=== PATIENT | female | born 1930 | race Caucasian/White ===

== ENCOUNTER 2016-08-16 08:32 | Inpatient (IN) | payer MEDICARE, OTHER ==
--- NOTE | 2016-08-16 09:26 | EDM.PDOC ---
ED HPI GENERAL MEDICAL PROBLEM - General Chief Complaint: Upper Extremity Injury/Pain Stated Complaint: LT SHLDR/FELL Time Seen by Provider: 08/16/16 09:10 Source of Information: Reports: Patient History Limitations: Reports: No Limitations - History of Present Illness INITIAL COMMENTS - FREE TEXT/NARRATIVE: Marleny is an 85 yo female who presents to the ER via family with concerns of left elbow pain. She states she was doing laundry this morning and ended up losing her balance. States she fell onto her left shoulder. Admits she was unable to get herself up. Home health stopped this morning and found her to be lying on the floor. She denies any loss of consciousness. States she has some mild right thumb discomfort as well. Otherwise, no other contributory symptoms. Location: Reports: Upper Extremity, Left Quality: Reports: Sharp Severity: Moderate Improves with: Reports: Immobilization Worsens with: Reports: Movement Associated Symptoms: Reports: No Other Symptoms Left Anterior Shoulder Pain Score (Numeric/FACES): 7 - Related Data Allergies Allergy/AdvReac Type Severity Reaction Status Date / Time No Known Allergies Allergy Verified 08/16/16 08:36 Home Meds: Home Meds Acetaminophen [Tylenol Extra Strength] 500 mg PO BID 06/18/14 [History] Atenolol [Tenormin] 25 mg PO DAILY 06/18/14 [History] Cholecalciferol (Vitamin D3) [Vitamin D3] 1,000 unit PO DAILY 06/18/14 [History] Fosinopril Sodium 40 mg PO DAILY 06/18/14 [History] Insuln Asp Prot/Insulin Aspart [NovoLOG Mix 70-30] 22 units SUBCUT WITHBREAKFAST 06/18/14 [History] Insuln Asp Prot/Insulin Aspart [NovoLOG Mix 70-30] 25 units SUBCUT BEDTIME 06/18 [History] Pregabalin [Lyrica] 75 mg PO BEDTIME 06/18/14 [History] Pregabalin [Lyrica] 100 mg PO DAILY 06/18/14 [History] Rosuvastatin Calcium [Crestor] 10 mg PO DAILY 06/18/14 [History] amLODIPine Besylate [Amlodipine Besylate] 10 mg PO DAILY 06/18/14 [History] Donepezil [Aricept] 10 mg PO BEDTIME 02/22/16 [History] Ascorbate Calcium [Vitamin C] 500 mg PO DAILY 08/16/16 [History] Aspirin 325 mg PO DAILY 08/16/16 [History] Ferrous Gluconate 324 mg PO DAILY 08/16/16 [History] Flaxseed Oil [Flaxseed] 1,200 mg PO DAILY 08/16/16 [History] Hydrochlorothiazide [Hydrochlorothiazide] 12.5 mg PO DAILY 08/16/16 [History] Vitamin B Complex 500 mcg PO DAILY 08/16/16 [History] Vitamin E 400 unit PO DAILY 08/16/16 [History] Past Medical History HEENT History: Reports: Impaired Vision Cardiovascular History: Reports: High Cholesterol, Hypertension Neurological History: Reports: Neuropathy, Diabetic Other Neuro History: forgetful Endocrine/Metabolic History: Reports: Diabetes, Type II Other Dermatologic History: Has x 3 dry blister areas on buttocks, from lying on floor at home when she fell. - Infectious Disease History Infectious Disease History: Reports: MRSA - Past Surgical History HEENT Surgical History: Reports: Cataract Surgery Musculoskeletal Surgical History: Reports: Carpal Tunnel, Other (See Below) Social & Family History - Family History Family Medical History: Noncontributory - Tobacco Use Smoking Status *Q: Never Smoker - Caffeine Use Caffeine Use: Reports: None - Recreational Drug Use Recreational Drug Use: No Review of Systems - Review of Systems Review Of Systems: ROS reveals no pertinent complaints other than HPI. Eyes: Reports: No Symptoms Ears: Reports: No Symptoms Nose: Reports: No Symptoms Mouth/Throat: Reports: No Symptoms Respiratory: Reports: No Symptoms Cardiovascular: Reports: No Symptoms Musculoskeletal: Reports: Shoulder Pain (left shoulder), Arm Pain (left upper arm) Skin: Reports: No Symptoms Neurological: Reports: No Symptoms Psychiatric: Reports: No Symptoms ED EXAM, GENERAL - Physical Exam Exam: See Below Exam Limited By: No Limitations General Appearance: Alert, WD/WN, Mild Distress Ears: Normal External Exam, Normal Canal, Hearing Grossly Normal, Normal TMs Nose: Normal Inspection, Normal Mucosa, No Blood Throat/Mouth: Normal Inspection, Normal Lips, Normal Gums, Normal Oropharynx, Normal Voice, No Airway Compromise Head: Atraumatic, Normocephalic Neck: Normal Inspection, Supple, Non-Tender, Full Range of Motion. No: Tender Lateral, Tender Midline Respiratory/Chest: No Respiratory Distress, Lungs Clear, No Accessory Muscle Use Cardiovascular: Regular Rate, Rhythm, No Murmur GI/Abdominal: Normal Bowel Sounds, Soft, Non-Tender, No Organomegaly, No Distention Back Exam: Normal Inspection, Full Range of Motion Extremities: Normal Capillary Refill, Arm Pain (left comminuted humeral neck/ head fracture), Limited Range of Motion Neurological: Alert, Oriented, Normal Cognition, Normal Gait, No Motor/Sensory Deficits. No: Confused Psychiatric: Normal Affect, Normal Mood Skin Exam: Warm, Dry, Intact, Normal Color, No Rash Course - Vital Signs Last Recorded V/S: Last Vital Signs Temp 97.2 F 08/16/16 08:38 Pulse 65 08/16/16 08:38 Resp 16 08/16/16 08:38 BP 114/53 L 08/16/16 08:38 Pulse Ox 97 08/16/16 08:38 - Orders/Labs/Meds Orders: Active Orders 24 hr Category Date Time Status Shoulder Comp Lt [CR] Stat Exams 08/16/16 08:45 Taken Departure - Departure Time of Disposition: 09:40 Disposition: Admitted As Inpatient 67 Condition: Undetermined Clinical Impression: Fracture, humerus - Discharge Information - Problem List & Annotations (1) Fracture, humerus SNOMED Code(s): 18291980 Code(s): S42.309A - UNSP FRACTURE OF SHAFT OF HUMERUS, UNSP ARM, INIT Status: Acute Current Visit: Yes Qualifiers: Encounter type: initial encounter Humerus Location: proximal Fracture type: closed Fracture alignment: displaced Laterality: left - Problem List Review Problem List Initiated/Reviewed/Updated: Yes - My Orders Last 24 Hours: My Active Orders 08/16/16 08:45 Shoulder Comp Lt [CR] Stat - Assessment/Plan Admission H&P: Please use this note as an admission H&P Last 24 Hours: My Active Orders 08/16/16 08:45 Shoulder Comp Lt [CR] Stat Plan: Consulted with Dr. Stoddadr, orthopaedic surgeon, at [facility] in [place]. He reviewed images and recommended arm sling with follow up appointment at [facility] in [place] in 10-14 days. Discussed conservative treatment v.s. surgical repair and Dr. Stoddard recommended conservative treatment initially to see how she progresses. [place] reverse shoulder replacement may be the end treatment if she does not progress well. Discussed results with family. Will admit to Dr. Mo's services under acute care for pain management. Discussed short term shelter placement as well. Will have consult for shelter placement as well. Dr. Mo agreed with admission. Marleny was transferred to floor in satisfactory condition. Arm sling applied.
[2016-08-16] MEDS ORDERED: Ketorolac 30 MG/ML SDV IVPUSH PRN (10:38)
[2016-08-16] MEDS ORDERED: Acetaminophen 325 MG Tab PO PRN (10:38)
[2016-08-16] MEDS ORDERED: Sodium Chloride 0.9% 10 ML Syringe FLUSH PRN (10:38)
[2016-08-16] MEDS: Enoxaparin 30 MG/0.3 ML Syringe SUBCUT SCH (17:27)
[2016-08-16] MEDS: Insuln Aspart Prot/Insulin Aspart 100 Units/ML 3 ML FlexPen SUBCUT SCH (17:28)
[2016-08-16] MEDS: Pregabalin 25 MG Cap PO SCH (19:43)
[2016-08-16] MEDS: Pregabalin 50 MG Cap PO SCH (19:43)
[2016-08-16] MEDS: Donepezil 5 MG Tab PO SCH (19:43)
[2016-08-16] MEDS ORDERED: PREGABALIN 75 MG PO SCH (20:00)
[2016-08-16] MEDS: Acetaminophen/oxyCODONE 325-5 MG Tab PO PRN (21:15)
[2016-08-17] MEDS: Aspirin 325 MG Tab.EC PO SCH (07:58)
[2016-08-17] MEDS: Hydrochlorothiazide 12.5 MG Cap PO SCH (07:58)
[2016-08-17] MEDS: Ascorbic Acid 500 MG Tab PO SCH (07:58)
[2016-08-17] MEDS: amLODIPine 10 MG Tab PO SCH (07:59)
[2016-08-17] MEDS: Ferrous Sulfate 324 MG Tab.EC PO SCH (07:59)
[2016-08-17] MEDS: Acetaminophen/oxyCODONE 325-5 MG Tab PO PRN ×3 (07:59→17:04)
[2016-08-17] MEDS: Lisinopril 20 MG Tab PO SCH (07:59)
[2016-08-17] MEDS: Atenolol 25 MG Tab PO SCH (07:59)
[2016-08-17] MEDS: Pregabalin 100 MG Cap PO SCH (07:59)
[2016-08-17] MEDS: Docusate Sodium 100 MG Cap PO PRN ×2 (07:59→20:37)
[2016-08-17] MEDS: Insuln Aspart Prot/Insulin Aspart 100 Units/ML 3 ML FlexPen SUBCUT SCH ×2 (08:03→17:07)
--- NOTE | 2016-08-17 08:21 | PN ---
DATE: 08/17/2016 S: Marleny was admitted yesterday by Juan after having a fall. She sustained a left humeral head fracture. She was admitted for weakness and pain control. For the most part, her vitals have been stable since here. Blood pressures are actually little high this morning. She is saturating well. She does admit to some pain. They have taken her out of an immobilizer and put her in a sling, but suspect she is getting some shifting with that. O: GENERAL: She is in her usual state. Pleasant and confused. HEENT: Grossly benign. NECK: Supple. Veins are flat. LUNG: Sounds appear clear. CARDIAC: Tones are regular. No peripheral edema is seen. MUSCULOSKELETAL: Left arm with swelling, held in a sling. ASSESSMENT: 1. FALL WITH HUMERAL FRACTURE. 2. CONFUSION SECONDARY TO DEMENTIA. 3. WEAKNESS. P: We will put her on an immobilizer. She is apparently eating well. We will get her up and moving today. No other changes at this time. KIANNA/ZAIN /[id number]
[2016-08-17] MEDS ORDERED: Tuberculin, PPD 5 Units/0.1 ML 1 ML MDV IDERM ONE (15:02)
[2016-08-17] MEDS: Enoxaparin 30 MG/0.3 ML Syringe SUBCUT SCH (17:05)
[2016-08-17] MEDS ORDERED: Tuberculin, PPD 5 Units/0.1 ML 1 ML MDV ONE (17:24)
[2016-08-17] MEDS: Pregabalin 25 MG Cap PO SCH (20:34)
[2016-08-17] MEDS: Donepezil 5 MG Tab PO SCH (20:34)
[2016-08-17] MEDS: Simvastatin 40 MG Tab PO SCH (20:37)
[2016-08-17] MEDS: Pregabalin 50 MG Cap PO SCH (20:37)
[2016-08-18] MEDS: Acetaminophen/oxyCODONE 325-5 MG Tab PO PRN ×2 (00:44→20:28)
[2016-08-18] MEDS: Aspirin 325 MG Tab.EC PO SCH (07:46)
[2016-08-18] MEDS: Ferrous Sulfate 324 MG Tab.EC PO SCH (07:47)
[2016-08-18] MEDS: Hydrochlorothiazide 12.5 MG Cap PO SCH (07:47)
[2016-08-18] MEDS: Ascorbic Acid 500 MG Tab PO SCH (07:48)
[2016-08-18] MEDS: Atenolol 25 MG Tab PO SCH (07:48)
[2016-08-18] MEDS: Pregabalin 100 MG Cap PO SCH (07:48)
[2016-08-18] MEDS: Lisinopril 20 MG Tab PO SCH (07:51)
[2016-08-18] MEDS: amLODIPine 10 MG Tab PO SCH (07:51)
[2016-08-18] MEDS: Insuln Aspart Prot/Insulin Aspart 100 Units/ML 3 ML FlexPen SUBCUT SCH ×2 (07:53→17:17)
--- NOTE | 2016-08-18 12:48 | PN ---
DATE: 08/18/2016 S: Marleny is not doing well. She has not had any significant change in her pain. Blood pressure is well controlled. She did get put in an immobilizer yesterday. I think they gave her a little bit more relief. She has pain whenever she turns. [facility]. O: GENERAL: She is pleasant and cooperative. NECK: Supple. Veins are flat. LUNGS: Clear. HEART: Cardiac tones are regular. ABDOMEN: No abdominal pain to palpation. No peripheral edema. ASSESSMENT: 1. FALL WITH HUMERAL FRACTURE. 2. DEMENTIA. 3. FAILURE TO THRIVE. P: We are going to ultimately transfer to [facility]. Waiting for bed to open. For now continue with IV pain meds, Toradol, etc. KIANNA/ZAIN /[id number]
[2016-08-18] MEDS: Enoxaparin 30 MG/0.3 ML Syringe SUBCUT SCH (17:16)
[2016-08-18] MEDS: Donepezil 5 MG Tab PO SCH (20:27)
[2016-08-18] MEDS: Pregabalin 50 MG Cap PO SCH (20:28)
[2016-08-18] MEDS: Pregabalin 25 MG Cap PO SCH (20:28)
[2016-08-18] MEDS: Simvastatin 40 MG Tab PO SCH (20:28)
[2016-08-19] MEDS: Insuln Aspart Prot/Insulin Aspart 100 Units/ML 3 ML FlexPen SUBCUT SCH ×2 (08:07→17:29)
[2016-08-19] MEDS: Pregabalin 100 MG Cap PO SCH (08:17)
[2016-08-19] MEDS: Lisinopril 20 MG Tab PO SCH (08:17)
[2016-08-19] MEDS: Hydrochlorothiazide 12.5 MG Cap PO SCH (08:17)
[2016-08-19] MEDS: Aspirin 325 MG Tab.EC PO SCH (08:17)
[2016-08-19] MEDS: amLODIPine 10 MG Tab PO SCH (08:17)
[2016-08-19] MEDS: Ascorbic Acid 500 MG Tab PO SCH (08:17)
[2016-08-19] MEDS: Atenolol 25 MG Tab PO SCH (08:17)
[2016-08-19] MEDS: Ferrous Sulfate 324 MG Tab.EC PO SCH (08:17)
--- NOTE | 2016-08-19 08:44 | PCM.PN ---
- General Info Date of Service: 08/19/16 Admission Dx/Problem (Free Text): Received patient sitting up in bed eating breakfast. She is very pleasant, but confused at this time. Left arm in should immobilizer. Denies any pain at this time, and nursing states her pain has been ell controlled through the night. BBS are clear, resp. even and unlabored at this time. Skin warm and dry. heart tones normal. Abdomen is somft and bowel sounds are normal. patient responds to commands appropriately, and is no acute distress at this time. Will montor patient closely. Functional Status: Reports: pain controlled - Review of Systems General: Reports: No Symptoms HEENT: Reports: no symptoms Pulmonary: Reports: no symptoms Cardiovascular: Reports: No Symptoms Gastrointestinal: Reports: No symptoms Genitourinary: Reports: no symptoms Musculoskeletal: Reports: no symptoms Skin: Reports: no symptoms Psychiatric: Reports: no symptoms - Patient Data Vitals - most recent: Last Vital Signs Temp 97.5 F 08/19/16 07:34 Pulse 75 08/19/16 07:34 Resp 20 08/19/16 07:34 BP 157/61 H 08/19/16 07:34 Pulse Ox 92 L 08/19/16 07:34 Weight - most recent: 157 lb 12.8 oz Lab Results last 24 hrs: Laboratory Results - last 24 hr 08/18/16 08/18/16 08/18/16 Range/Units 11:49 17:19 21:07 POC Glucose 343 H 195 H 285 H (75-105) mg/dl 08/19/16 Range/Units 07:31 POC Glucose 238 H (75-105) mg/dl Arnel Results last 24 hrs: Microbiology 08/17/16 09:04 MRSA Clearance Screen - Final Nasal, Unspecified NO MRSA ISOLATED Med Orders - Current: Current Medications Acetaminophen (Tylenol) 650 mg PO Q4H PRN PRN Reason: Pain (Mild 1-3)/fever Last Admin: 08/18/16 09:25 Dose: 650 mg Amlodipine Besylate (Norvasc) 10 mg PO DAILY [facility] Last Admin: 08/19/16 08:17 Dose: 10 mg Ascorbic Acid (Vitamin C) 500 mg PO DAILY [facility] Last Admin: 08/19/16 08:17 Dose: 500 mg Aspirin (Ecotrin) 325 mg PO DAILY [facility] Last Admin: 08/19/16 08:17 Dose: 325 mg Atenolol (Tenormin) 25 mg PO DAILY [facility] Last Admin: 08/19/16 08:17 Dose: 25 mg Docusate Sodium (Colace) 100 mg PO BID PRN PRN Reason: Constipation Last Admin: 08/17/16 20:37 Dose: 100 mg Donepezil HCl (Aricept) 10 mg PO BEDTIME [facility] Last Admin: 08/18/16 20:27 Dose: 10 mg Enoxaparin Sodium (Lovenox) 30 mg SUBCUT Q24H [facility] Last Admin: 08/18/16 17:16 Dose: 30 mg Ferrous Sulfate (Ferrous Sulfate) 324 mg PO DAILY [facility] Last Admin: 08/19/16 08:17 Dose: 324 mg Hydrochlorothiazide (Hydrochlorothiazide) 12.5 mg PO DAILY [facility] Last Admin: 08/19/16 08:17 Dose: 12.5 mg Insulin Aspart (Novolog Mix 70-30) 22 unit SUBCUT WITHBREAKFAST [facility] Last Admin: 08/19/16 08:07 Dose: 22 units Insulin Aspart (Novolog Mix 70-30) 25 unit SUBCUT 1730 [facility] Last Admin: 08/18/16 17:17 Dose: 25 unit Ketorolac Tromethamine (Toradol) 15 mg IVPUSH Q6H PRN PRN Reason: Pain (moderate 4-6) Lisinopril (Prinivil) 20 mg PO DAILY [facility] Last Admin: 08/19/16 08:17 Dose: 20 mg Oxycodone/Acetaminophen (Percocet 325-5 Mg) 1 tab PO Q4H PRN PRN Reason: Pain (moderate 4-6) Last Admin: 08/18/16 20:28 Dose: 1 tab Pregabalin (Lyrica) 100 mg PO DAILY [facility] Last Admin: 08/19/16 08:17 Dose: 100 mg Pregabalin (Lyrica) 25 mg PO BEDTIME [facility] Last Admin: 08/18/16 20:28 Dose: 25 mg Pregabalin (Lyrica) 50 mg PO BEDTIME [facility] Last Admin: 08/18/16 20:28 Dose: 50 mg Simvastatin (Zocor) 40 mg PO BEDTIME [facility] Last Admin: 08/18/16 20:28 Dose: 40 mg Sodium Chloride (Saline Flush) 10 ml FLUSH ASDIRECTED PRN PRN Reason: Keep Vein Open Discontinued Medications Tuberculin PPD (Aplisol) 5 unit IDERM ONETIME ONE Stop: 08/17/16 15:03 Last Admin: 08/17/16 17:14 Dose: 5 unit Tuberculin PPD (Aplisol) Confirm Administered Dose 5 unit .ROUTE .STK-MED ONE Stop: 08/17/16 17:25 Last Admin: 08/17/16 17:22 Dose: Not Given - Problem List Review Problem List Initiated/Reviewed/Updated: Yes
[2016-08-19] MEDS: Acetaminophen/oxyCODONE 325-5 MG Tab PO PRN (14:41)
[2016-08-19] MEDS: Enoxaparin 30 MG/0.3 ML Syringe SUBCUT SCH (17:05)
[2016-08-19] MEDS: Donepezil 5 MG Tab PO SCH (19:48)
[2016-08-19] MEDS: Simvastatin 40 MG Tab PO SCH (19:48)
[2016-08-19] MEDS: Pregabalin 25 MG Cap PO SCH (19:48)
[2016-08-19] MEDS: Pregabalin 50 MG Cap PO SCH (19:48)
[2016-08-20] MEDS: Insuln Aspart Prot/Insulin Aspart 100 Units/ML 3 ML FlexPen SUBCUT SCH ×2 (08:16→17:40)
[2016-08-20] MEDS: Aspirin 325 MG Tab.EC PO SCH (08:21)
[2016-08-20] MEDS: Pregabalin 100 MG Cap PO SCH (08:21)
[2016-08-20] MEDS: amLODIPine 10 MG Tab PO SCH (08:22)
[2016-08-20] MEDS: Ferrous Sulfate 324 MG Tab.EC PO SCH (08:22)
[2016-08-20] MEDS: Hydrochlorothiazide 12.5 MG Cap PO SCH (08:22)
[2016-08-20] MEDS: Atenolol 25 MG Tab PO SCH (08:22)
[2016-08-20] MEDS: Ascorbic Acid 500 MG Tab PO SCH (08:22)
[2016-08-20] MEDS: Lisinopril 20 MG Tab PO SCH (08:22)
--- NOTE | 2016-08-20 09:16 | PCM.PN ---
- General Info Date of Service: 08/20/16 Admission Dx/Problem (Free Text): Sitting up n bed just finished breakfast. Denies pain or discomfort at this time. No distress noted. BBS clear. Appears to be in good spirits. [facility] Will continue to monitor patient closely. Functional Status: Reports: pain controlled - Review of Systems General: Reports: No Symptoms HEENT: Reports: no symptoms Pulmonary: Reports: no symptoms Cardiovascular: Reports: No Symptoms Gastrointestinal: Reports: No symptoms Genitourinary: Reports: no symptoms Musculoskeletal: Reports: no symptoms - Patient Data Vitals - most recent: Last Vital Signs Temp 98.5 F 08/20/16 08:00 Pulse 76 08/20/16 08:00 Resp 18 08/20/16 08:00 BP 147/59 H 08/20/16 08:00 Pulse Ox 92 L 08/20/16 08:00 Weight - most recent: 157 lb 12.8 oz Lab Results last 24 hrs: Laboratory Results - last 24 hr 08/19/16 08/19/16 08/19/16 Range/Units 11:33 17:17 20:34 POC Glucose 301 H 244 H 242 H (75-105) mg/dl 08/20/16 Range/Units 07:40 POC Glucose 201 H (75-105) mg/dl Med Orders - Current: Current Medications Acetaminophen (Tylenol) 650 mg PO Q4H PRN PRN Reason: Pain (Mild 1-3)/fever Last Admin: 08/18/16 09:25 Dose: 650 mg Amlodipine Besylate (Norvasc) 10 mg PO DAILY [facility] Last Admin: 08/20/16 08:22 Dose: 10 mg Ascorbic Acid (Vitamin C) 500 mg PO DAILY [facility] Last Admin: 08/20/16 08:22 Dose: 500 mg Aspirin (Ecotrin) 325 mg PO DAILY [facility] Last Admin: 08/20/16 08:21 Dose: 325 mg Atenolol (Tenormin) 25 mg PO DAILY [facility] Last Admin: 08/20/16 08:22 Dose: 25 mg Docusate Sodium (Colace) 100 mg PO BID PRN PRN Reason: Constipation Last Admin: 08/17/16 20:37 Dose: 100 mg Donepezil HCl (Aricept) 10 mg PO BEDTIME [facility] Last Admin: 08/19/16 19:48 Dose: 10 mg Enoxaparin Sodium (Lovenox) 30 mg SUBCUT Q24H [facility] Last Admin: 08/19/16 17:05 Dose: 30 mg Ferrous Sulfate (Ferrous Sulfate) 324 mg PO DAILY [facility] Last Admin: 08/20/16 08:22 Dose: 324 mg Hydrochlorothiazide (Hydrochlorothiazide) 12.5 mg PO DAILY [facility] Last Admin: 08/20/16 08:22 Dose: 12.5 mg Insulin Aspart (Novolog Mix 70-30) 22 unit SUBCUT WITHBREAKFAST [facility] Last Admin: 08/20/16 08:16 Dose: 22 units Insulin Aspart (Novolog Mix 70-30) 25 unit SUBCUT 1730 [facility] Last Admin: 08/19/16 17:29 Dose: 25 unit Ketorolac Tromethamine (Toradol) 15 mg IVPUSH Q6H PRN PRN Reason: Pain (moderate 4-6) Last Admin: 08/20/16 05:25 Dose: 15 mg Lisinopril (Prinivil) 20 mg PO DAILY [facility] Last Admin: 08/20/16 08:22 Dose: 20 mg Oxycodone/Acetaminophen (Percocet 325-5 Mg) 1 tab PO Q4H PRN PRN Reason: Pain (moderate 4-6) Last Admin: 08/19/16 14:41 Dose: 1 tab Pregabalin (Lyrica) 100 mg PO DAILY [facility] Last Admin: 08/20/16 08:21 Dose: 100 mg Pregabalin (Lyrica) 25 mg PO BEDTIME [facility] Last Admin: 08/19/16 19:48 Dose: 25 mg Pregabalin (Lyrica) 50 mg PO BEDTIME [facility] Last Admin: 08/19/16 19:48 Dose: 50 mg Simvastatin (Zocor) 40 mg PO BEDTIME [facility] Last Admin: 08/19/16 19:48 Dose: 40 mg Sodium Chloride (Saline Flush) 10 ml FLUSH ASDIRECTED PRN PRN Reason: Keep Vein Open Discontinued Medications Tuberculin PPD (Aplisol) 5 unit IDERM ONETIME ONE Stop: 08/17/16 15:03 Last Admin: 08/17/16 17:14 Dose: 5 unit Tuberculin PPD (Aplisol) Confirm Administered Dose 5 unit .ROUTE .STK-MED ONE Stop: 08/17/16 17:25 Last Admin: 08/17/16 17:22 Dose: Not Given - Problem List Review Problem List Initiated/Reviewed/Updated: Yes
[2016-08-20] MEDS: Enoxaparin 30 MG/0.3 ML Syringe SUBCUT SCH (17:40)
[2016-08-20] MEDS: Pregabalin 50 MG Cap PO SCH (21:07)
[2016-08-20] MEDS: Donepezil 5 MG Tab PO SCH (21:07)
[2016-08-20] MEDS: Simvastatin 40 MG Tab PO SCH (21:07)
[2016-08-20] MEDS: Pregabalin 25 MG Cap PO SCH (21:07)
[2016-08-20] MEDS: Acetaminophen/oxyCODONE 325-5 MG Tab PO PRN (21:08)
[2016-08-21] MEDS: Ferrous Sulfate 324 MG Tab.EC PO SCH (08:28)
[2016-08-21] MEDS: Hydrochlorothiazide 12.5 MG Cap PO SCH (08:28)
[2016-08-21] MEDS: Atenolol 25 MG Tab PO SCH (08:28)
[2016-08-21] MEDS: Lisinopril 20 MG Tab PO SCH (08:28)
[2016-08-21] MEDS: Pregabalin 100 MG Cap PO SCH (08:28)
[2016-08-21] MEDS: Aspirin 325 MG Tab.EC PO SCH (08:28)
[2016-08-21] MEDS: amLODIPine 10 MG Tab PO SCH (08:28)
[2016-08-21] MEDS: Ascorbic Acid 500 MG Tab PO SCH (08:28)
[2016-08-21 08:29] VITALS: BP 149/60
[2016-08-21] MEDS: Insuln Aspart Prot/Insulin Aspart 100 Units/ML 3 ML FlexPen SUBCUT SCH (08:33)
--- NOTE | 2016-08-21 20:56 | PCM.DCSUM1 ---
Discharge Summary - Hospital Course Free Text/Narrative:: Patient presented to ED after a fall where she sustained a humeral fracture. Patient was doing laundry and fell and was unable to get up from the floor. Home health found her lying on the floor. Patient does have history of dementia , instability and frequent falls so was felt that should be admitted for pain control and safety. - Discharge Data Discharge Date: 08/21/16 Discharge Disposition: DC/Tfer to [facility] Condition: Fair - Patient Summary/Data Complications: none Hospital Course: Patient admitted by Juan [place]. Consult was done at that time with orthopaedics who felt that surgical correction not needed and patient was placed in sling with suggested follow up in 2 weeks. Did have more issues with uncontrolled pain with the sling so was placed in an immobilizer. Had pain in first 24 hours but was controlled with pain medications. Over the last 24 hours, pain med use has decreased significantly. Tolerating meals, uses quad cane for ambulation with stand by assist. Will transfer to [facility] for rehab with PT and OT, pain meds. - Patient Instructions Diet: Diabetic Diet Activity: As Tolerated - Discharge Plan Prescriptions/Med Rec: oxyCODONE HCl/Acetaminophen [Percocet 5-325 mg Tablet] 1 each PO Q6H #30 tablet Home Medications: Home Meds Acetaminophen [Tylenol Extra Strength] 500 mg PO BID 06/18/14 [History] Atenolol [Tenormin] 25 mg PO DAILY 06/18/14 [History] Cholecalciferol (Vitamin D3) [Vitamin D3] 1,000 unit PO DAILY 06/18/14 [History] Fosinopril Sodium 40 mg PO DAILY 06/18/14 [History] Insuln Asp Prot/Insulin Aspart [NovoLOG Mix 70-30] 22 units SUBCUT WITHBREAKFAST 06/18/14 [History] Insuln Asp Prot/Insulin Aspart [NovoLOG Mix 70-30] 25 units SUBCUT BEDTIME 06/18 [History] Pregabalin [Lyrica] 75 mg PO BEDTIME 06/18/14 [History] Pregabalin [Lyrica] 100 mg PO DAILY 06/18/14 [History] Rosuvastatin Calcium [Crestor] 10 mg PO DAILY 06/18/14 [History] amLODIPine Besylate [Amlodipine Besylate] 10 mg PO DAILY 06/18/14 [History] Donepezil [Aricept] 10 mg PO BEDTIME 02/22/16 [History] Ascorbate Calcium [Vitamin C] 500 mg PO DAILY 08/16/16 [History] Aspirin 325 mg PO DAILY 08/16/16 [History] Ferrous Gluconate 324 mg PO DAILY 08/16/16 [History] Flaxseed Oil [Flaxseed] 1,200 mg PO DAILY 08/16/16 [History] Hydrochlorothiazide 12.5 mg PO DAILY 08/16/16 [History] Vitamin B Complex 500 mcg PO DAILY 08/16/16 [History] Vitamin E 400 unit PO DAILY 08/16/16 [History] oxyCODONE HCl/Acetaminophen [Percocet 5-325 mg Tablet] 1 each PO Q6H #30 tablet 08/21/16 [Rx] Forms: ED Department Discharge Referrals: Daren Mo MD [Primary Care Provider] - - Discharge Summary/Plan Comment DC Time >30 min.: Yes Discharge Summary/Plan Comment: Discharge to [facility]. Continue with PT and OT. Exam, orders and documentation time 40 minutes. - General Info Date of Service: 08/21/16 Admission Dx/Problem (Free Text: Left Humerus Fracture Functional Status: Reports: pain controlled, tolerating diet, ambulating - Review of Systems General: Reports: No Symptoms HEENT: Reports: no symptoms Pulmonary: Reports: no symptoms Cardiovascular: Reports: No Symptoms Gastrointestinal: Reports: No symptoms Genitourinary: Reports: no symptoms Musculoskeletal: Reports: shoulder pain, arm pain Skin: Reports: no symptoms Neurological: Reports: Confusion Psychiatric: Reports: confusion - Patient Data Vitals - Most Recent: Last Vital Signs Temp 98.3 F 08/21/16 08:00 Pulse 76 08/21/16 08:28 Resp 18 08/21/16 08:00 BP 149/60 H 08/21/16 08:28 Pulse Ox 94 L 08/21/16 08:00 Weight - Most Recent: 157 lb 12.8 oz Lab Results - Last 24 hrs: Laboratory Results - last 24 hr 08/21/16 Range/Units 07:35 POC Glucose 168 H (75-105) mg/dl Med Orders - Current: Current Medications Discontinued Medications Acetaminophen (Tylenol) 650 mg PO Q4H PRN PRN Reason: Pain (Mild 1-3)/fever Last Admin: 08/18/16 09:25 Dose: 650 mg Amlodipine Besylate (Norvasc) 10 mg PO DAILY [facility] Last Admin: 08/21/16 08:28 Dose: 10 mg Ascorbic Acid (Vitamin C) 500 mg PO DAILY [facility] Last Admin: 08/21/16 08:28 Dose: 500 mg Aspirin (Ecotrin) 325 mg PO DAILY [facility] Last Admin: 08/21/16 08:28 Dose: 325 mg Atenolol (Tenormin) 25 mg PO DAILY [facility] Last Admin: 08/21/16 08:28 Dose: 25 mg Docusate Sodium (Colace) 100 mg PO BID PRN PRN Reason: Constipation Last Admin: 08/17/16 20:37 Dose: 100 mg Donepezil HCl (Aricept) 10 mg PO BEDTIME [facility] Last Admin: 08/20/16 21:07 Dose: 10 mg Enoxaparin Sodium (Lovenox) 30 mg SUBCUT Q24H [facility] Last Admin: 08/20/16 17:40 Dose: 30 mg Ferrous Sulfate (Ferrous Sulfate) 324 mg PO DAILY [facility] Last Admin: 08/21/16 08:28 Dose: 324 mg Hydrochlorothiazide (Hydrochlorothiazide) 12.5 mg PO DAILY [facility] Last Admin: 08/21/16 08:28 Dose: 12.5 mg Insulin Aspart (Novolog Mix 70-30) 22 unit SUBCUT WITHBREAKFAST [facility] Last Admin: 08/21/16 08:33 Dose: 22 units Insulin Aspart (Novolog Mix 70-30) 25 unit SUBCUT 1730 [facility] Last Admin: 08/20/16 17:40 Dose: 25 unit Ketorolac Tromethamine (Toradol) 15 mg IVPUSH Q6H PRN PRN Reason: Pain (moderate 4-6) Last Admin: 08/20/16 05:25 Dose: 15 mg Lisinopril (Prinivil) 20 mg PO DAILY [facility] Last Admin: 08/21/16 08:28 Dose: 20 mg Oxycodone/Acetaminophen (Percocet 325-5 Mg) 1 tab PO Q4H PRN PRN Reason: Pain (moderate 4-6) Last Admin: 08/20/16 21:08 Dose: 1 tab Pregabalin (Lyrica) 100 mg PO DAILY [facility] Last Admin: 08/21/16 08:28 Dose: 100 mg Pregabalin (Lyrica) 25 mg PO BEDTIME [facility] Last Admin: 08/20/16 21:07 Dose: 25 mg Pregabalin (Lyrica) 50 mg PO BEDTIME [facility] Last Admin: 08/20/16 21:07 Dose: 50 mg Simvastatin (Zocor) 40 mg PO BEDTIME [facility] Last Admin: 08/20/16 21:07 Dose: 40 mg Sodium Chloride (Saline Flush) 10 ml FLUSH ASDIRECTED PRN PRN Reason: Keep Vein Open Tuberculin PPD (Aplisol) 5 unit IDERM ONETIME ONE Stop: 08/17/16 15:03 Last Admin: 08/17/16 17:14 Dose: 5 unit Tuberculin PPD (Aplisol) Confirm Administered Dose 5 unit .ROUTE .STK-MED ONE Stop: 08/17/16 17:25 Last Admin: 08/17/16 17:22 Dose: Not Given - Exam General: Reports: alert, oriented (person and place), cooperative HEENT: Reports: Mucous membr. moist/pink Neck: Reports: supple Lungs: Reports: Clear to auscultation, Normal respiratory effort Cardiovascular: Reports: Regular Rate, Regular Rhythm Extremities: Reports: other (left arm immobilizer intact) Skin: Reports: warm, dry *Q Meaningful Use (DIS) - VTE *Q VTE Criteria *Q: - Stroke *Q Stroke Criteria *Q: - AMI *Q AMI Criteria *Q:
== END 2016-08-21 10:05 | DRG 948 ==
LOC: CC.ED 08:32 → CC.MS 09:57 → UNDOADMIN 09:57 → CC.MS 10:38 → UNDOADMIN 10:38 → CC.MS 08-17 16:57
PROVIDERS: ADMIT Physician Assistant Medical; ATTEND Family Medicine
DX: G89.11 Acute pain due to trauma (principal); M25.512 Pain in left shoulder; M25.522 Pain in left elbow; S42.302A Unspecified fracture of shaft of humerus, left arm, initial encounter for closed fracture; R53.1 Weakness; E11.40 Type 2 diabetes mellitus with diabetic neuropathy, unspecified; Z79.4 Long term (current) use of insulin; Z79.82 Long term (current) use of aspirin; Z79.899 Other long term (current) drug therapy; E78.00 Pure hypercholesterolemia, unspecified; I10 Essential (primary) hypertension; R62.7 Adult failure to thrive; F03.90 Unspecified dementia, unspecified severity, without behavioral disturbance, psychotic disturbance, mood disturbance, and anxiety; Z86.14 Personal history of Methicillin resistant Staphylococcus aureus infection; W19.XXXA Unspecified fall, initial encounter; Y93.E2 Activity, laundry; Y92.009 Unspecified place in unspecified non-institutional (private) residence as the place of occurrence of the external cause
CPT/HCPCS: 36415; 73030-LT; 80048; 82962; 85025; 87070; 97110-GP; 97116-GP; 97161-GP; 97530-GP; 99284; A9270-GY; J1650; J1815-GY; J1885

== ENCOUNTER 2018-05-13 06:59 | Emergency (ER) | payer MEDICARE, OTHER, MEDICAID ==
[2018-05-13 07:09] VITALS: BP 146/59
--- NOTE | 2018-05-13 07:47 | EDM.PDOC ---
ED HPI GENERAL MEDICAL PROBLEM - General Chief Complaint: General Stated Complaint: HIP PAIN Time Seen by Provider: 05/13/18 07:33 Source of Information: Reports: Patient, Family, Care Home Records - History of Present Illness INITIAL COMMENTS - FREE TEXT/NARRATIVE: Patient is an 87 year old female from the retirement that states that she had a fall yesterday and has right hip and elbow pain. The retirement states she was helped up and had no loss of consciousness and has had limited weight bearing since the fall. She is unable to describe the pain but does locate it to the right hip and right elbow. Onset: Gradual Onset Date: 05/12/18 Duration: Day(s): (1) Location: Reports: Upper Extremity, Right, Lower Extremity, Right Severity: Moderate Associated Symptoms: Reports: No Other Symptoms - Related Data Allergies Allergy/AdvReac Type Severity Reaction Status Date / Time No Known Allergies Allergy Verified 05/13/18 07:12 Home Meds: Home Meds Acetaminophen [Tylenol Extra Strength] 500 mg PO BID 06/18/14 [History] Atenolol [Tenormin] 25 mg PO DAILY 06/18/14 [History] Cholecalciferol (Vitamin D3) [Vitamin D3] 1,000 unit PO DAILY 06/18/14 [History] Fosinopril Sodium 40 mg PO DAILY 06/18/14 [History] Insuln Asp Prot/Insulin Aspart [NovoLOG Mix 70-30] 22 units SUBCUT WITHBREAKFAST 06/18/14 [History] Insuln Asp Prot/Insulin Aspart [NovoLOG Mix 70-30] 25 units SUBCUT BEDTIME 06/18 [History] Pregabalin [Lyrica] 75 mg PO BEDTIME 06/18/14 [History] Pregabalin [Lyrica] 100 mg PO DAILY 06/18/14 [History] Rosuvastatin Calcium [Crestor] 10 mg PO DAILY 06/18/14 [History] amLODIPine Besylate [Amlodipine Besylate] 10 mg PO DAILY 06/18/14 [History] Donepezil [Aricept] 10 mg PO BEDTIME 02/22/16 [History] Ascorbate Calcium [Vitamin C] 500 mg PO DAILY 08/16/16 [History] Aspirin 325 mg PO DAILY 08/16/16 [History] Ferrous Gluconate 324 mg PO DAILY 08/16/16 [History] Flaxseed Oil [Flaxseed] 1,200 mg PO DAILY 08/16/16 [History] Hydrochlorothiazide 12.5 mg PO DAILY 08/16/16 [History] Vitamin B Complex 500 mcg PO DAILY 08/16/16 [History] Vitamin E 400 unit PO DAILY 08/16/16 [History] oxyCODONE HCl/Acetaminophen [Percocet 5-325 mg Tablet] 1 each PO Q6H #30 tablet 08/21/16 [Rx] Past Medical History HEENT History: Reports: Impaired Vision Cardiovascular History: Reports: High Cholesterol, Hypertension Gastrointestinal History: Reports: GERD RN 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 - Infectious Disease History Infectious Disease History: Reports: MRSA - Past Surgical History HEENT Surgical History: Reports: Cataract Surgery Musculoskeletal Surgical History: Reports: Carpal Tunnel, Other (See Below) Other Musculoskeletal Surgeries/Procedures:: shoulder fx - History Comment History Comment: Reviewed and agree with nursing assessment. Social & Family History - Family History Family Medical History: Noncontributory - Caffeine Use Caffeine Use: Reports: Coffee - Living Situation & Occupation Social History Comment: reviewed and agree with nursing assessment. ED ROS GENERAL - Review of Systems Review Of Systems: See Below Constitutional: Reports: No Symptoms HEENT: Reports: No Symptoms Respiratory: Reports: No Symptoms Cardiovascular: Reports: No Symptoms Musculoskeletal: Reports: Joint Pain, Muscle Pain, Other (right hip / right elbow--) Skin: Reports: Other (brusing to the right elbow. ) Neurological: Reports: No Symptoms ED EXAM, GENERAL - Physical Exam Exam: See Below Exam Limited By: No Limitations General Appearance: Alert, WD/WN, No Apparent Distress Eye Exam: Bilateral Eye: EOMI, PERRL Ears: Normal Canal, Hearing Grossly Normal, Normal TMs (right ear abrasion/ tegaderm in place. ) Ear Exam: Bilateral Ear: TM normal Nose: Normal Inspection, Normal Mucosa, No Blood Throat/Mouth: Normal Inspection Head: Atraumatic, Normocephalic Neck: Normal Inspection Respiratory/Chest: No Respiratory Distress, Lungs Clear, Normal Breath Sounds, No Accessory Muscle Use, Chest Non-Tender Cardiovascular: Normal Peripheral Pulses, Regular Rate, Rhythm Peripheral Pulses: 4+: Posterior Tibial (L), Posterior Tibial (R), Dorsalis Pedis (L), Dorsalis Pedis (R) GI/Abdominal: Normal Bowel Sounds, Soft, Non-Tender Back Exam: Normal Inspection, Full Range of Motion Extremities: No Pedal Edema, Normal Capillary Refill (right hip tender to palpation/ no shortening or external / internal rotation. ) Neurological: Alert, Normal Cognition, No Motor/Sensory Deficits Psychiatric: Depressed Mood Skin Exam: Warm, Dry, Intact, Other (ecchymosis to the right elbow. ) Course - Vital Signs Last Recorded V/S: Last Vital Signs Temp 97.7 F 05/13/18 06:59 Pulse 73 05/13/18 06:59 Resp 20 05/13/18 06:59 BP 146/59 H 05/13/18 06:59 Pulse Ox 93 L 05/13/18 06:59 - Orders/Labs/Meds Orders: Active Orders 24 hr Category Date Time Status Elbow 2V Rt [CR] Stat Exams 05/13/18 07:13 Taken Hip Min 2V or 3V w Pelvis Rt [CR] Stat Exams 05/13/18 07:13 Taken - Radiology Interpretation Free Text/Narrative:: right elbow- negative xray. right hip degenerative changes no fractures. Departure - Departure Time of Disposition: 07:49 Disposition: Home, Self-Care 01 Condition: Good Clinical Impression: Contusion of right hip, initial encounter, Abrasion of right elbow, initial encounter, Contusion of right elbow, initial encounter Fall Qualifiers: Encounter type: initial encounter Qualified Code(s): W19.XXXA - Unspecified fall, initial encounter - Discharge Information *PRESCRIPTION DRUG MONITORING PROGRAM REVIEWED*: Not Applicable *COPY OF PRESCRIPTION DRUG MONITORING REPORT IN PATIENT SIM: Not Applicable Instructions: Elbow Contusion, [id number] Referrals: Daren Mo MD [ED Physician] - Additional Instructions: VO for Voltaren gel topically three times a day. for 10 days. Use Lidocaine patches to the right hip for pain change daily. See Ortho for pain if pain greater 10 days. - My Orders Last 24 Hours: My Active Orders 05/13/18 07:13 Elbow 2V Rt [CR] Stat Hip Min 2V or 3V w Pelvis Rt [CR] Stat - Assessment/Plan Last 24 Hours: My Active Orders 05/13/18 07:13 Elbow 2V Rt [CR] Stat Hip Min 2V or 3V w Pelvis Rt [CR] Stat Plan: Patient will be given Rx voltaren gel and lidocaine patches. And should see ortho for pain greater than 10 days.
== END 2018-05-13 09:53 | disposition home or self-care (01) ==
LOC: CC.ED 06:59
DX: S70.01XA Contusion of right hip, initial encounter (principal); S50.01XA Contusion of right elbow, initial encounter; S50.311A Abrasion of right elbow, initial encounter; E78.00 Pure hypercholesterolemia, unspecified; E11.40 Type 2 diabetes mellitus with diabetic neuropathy, unspecified; I10 Essential (primary) hypertension; K21.9 Gastro-esophageal reflux disease without esophagitis; Z79.899 Other long term (current) drug therapy; Z79.4 Long term (current) use of insulin; W18.30XA Fall on same level, unspecified, initial encounter
CPT/HCPCS: 72192; 73070-RT; 99284-25

== ENCOUNTER 2019-02-06 12:50 | Emergency (ER) | payer MEDICARE, OTHER, MEDICAID ==
[2019-02-06 12:57] VITALS: BP 125/47; PULSE 57
--- NOTE | 2019-02-06 14:07 | EDM.PDOC ---
ED HPI GENERAL MEDICAL PROBLEM - General Chief Complaint: General Stated Complaint: confusion Time Seen by Provider: 02/06/19 13:05 Source of Information: Reports: Patient, Family, Assisted Records History Limitations: Reports: No Limitations - History of Present Illness INITIAL COMMENTS - FREE TEXT/NARRATIVE: Patient presents to ER from [facility] for increased confusion the last 2 weeks. Family states she is slower to respond, takes an indeterminate amount of time to eat and seems more confused. She was changed from Lyrica to Gabapentin 2 weeks ago so thought possibly related to that and took her off the med completely a week ago but haven't seen improvement. Family unsure why the med was changed. [facility] relates that she has been incontinent which is unusual for her. Seems weak. Question if have had CVA. Patient did have labs done on Sunday which was essentially normal, sodium mildly low at 131. UA done today which was negative. Patient answers questions appropriately. Oriented to person and place, knows it is winter, unsure of exact date. Able to name family members. Denies any head pain, chest pain, shortness of breath. No nausea/vomiting/abdominal pain. Does have edema in her legs but that is chronic per family. Onset: Gradual Duration: Week(s): Location: Reports: Generalized Associated Symptoms: Reports: Confusion - Related Data Allergies Allergy/AdvReac Type Severity Reaction Status Date / Time No Known Allergies Allergy Verified 02/06/19 13:00 Home Meds: Home Meds Acetaminophen [Tylenol Extra Strength] 500 mg PO Q4HR PRN 06/18/14 [History] Fosinopril Sodium 80 mg PO DAILY 06/18/14 [History] Insuln Asp Prot/Insulin Aspart [NovoLOG Mix 70-30] 22 units SUBCUT BEDTIME 06/18 [History] Insuln Asp Prot/Insulin Aspart [NovoLOG Mix 70-30] 45 units SUBCUT WITHBREAKFAST 06/18/14 [History] Rosuvastatin Calcium [Crestor] 10 mg PO DAILY 06/18/14 [History] amLODIPine Besylate [Amlodipine Besylate] 10 mg PO DAILY 06/18/14 [History] atenoloL [Tenormin] 25 mg PO DAILY 06/18/14 [History] Donepezil [Aricept] 10 mg PO BEDTIME 02/22/16 [History] Aspirin 81 mg PO DAILY 08/16/16 [History] Hydrochlorothiazide 12.5 mg PO DAILY 08/16/16 [History] Acetaminophen 500 mg PO BID 05/13/18 [History] Ferrous Sulfate 325 mg PO DAILY 05/13/18 [History] Krill/Om-3/DHA/EPA/Phospho/Ast [Krill Oil 500 mg Softgel] 1 cap PO DAILY [History] Loratadine 10 mg PO DAILY 05/13/18 [History] Lutein/Min/Vit C/Vit E Acetate [Ocuvite Lutein] 1 cap PO DAILY 05/13/18 [History ] Melatonin 5 mg PO DAILY 05/13/18 [History] Past Medical History HEENT History: Reports: Impaired Vision Cardiovascular History: Reports: High Cholesterol, Hypertension Gastrointestinal History: Reports: GERD 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 - Infectious Disease History Infectious Disease History: Reports: Chicken Pox - Past Surgical History HEENT Surgical History: Reports: Cataract Surgery Cardiovascular Surgical History: Reports: None GI Surgical History: Reports: None Endocrine Surgical History: Reports: None Musculoskeletal Surgical History: Reports: Carpal Tunnel, Other (See Below) Other Musculoskeletal Surgeries/Procedures:: shoulder fx - History Comment History Comment: Reviewed and agree with nursing assessment. Social & Family History - Family History Family Medical History: Noncontributory Musculoskeletal: Reports: Arthritis Endocrine/Metabolic: Reports: Diabetes, type II Hematologic: Reports: None Immunologic: Reports: None - Tobacco Use Smoking Status *Q: Never Smoker - Caffeine Use Caffeine Use: Reports: None - Recreational Drug Use Recreational Drug Use: No ED ROS GENERAL - Review of Systems Review Of Systems: See Below Constitutional: Reports: Malaise, Weakness, Fatigue, Decreased Appetite. Denies : Fever, Chills HEENT: Denies: Ear Pain, Sinus Problem, Throat Pain, Vertigo Respiratory: Denies: Shortness of Breath, Cough Cardiovascular: Reports: Edema. Denies: Chest Pain, Lightheadedness Endocrine: Reports: Fatigue GI/Abdominal: Reports: Decreased Appetite. Denies: Abdominal Pain, Nausea, Vomiting : Reports: Incontinence Musculoskeletal: Reports: No Symptoms Skin: Reports: No Symptoms Neurological: Reports: Weakness. Denies: Confusion, Dizziness Psychiatric: Reports: No Symptoms ED EXAM, GENERAL - Physical Exam Exam: See Below Exam Limited By: No Limitations General Appearance: Alert, WD/WN, No Apparent Distress Eye Exam: Bilateral Eye: PERRL Ears: Normal External Exam, Normal TMs Nose: Normal Inspection, Normal Mucosa, No Blood Throat/Mouth: Normal Inspection, Normal Oropharynx Head: Normocephalic Neck: Normal Inspection, Supple, Non-Tender Respiratory/Chest: No Respiratory Distress, Lungs Clear, Normal Breath Sounds Cardiovascular: Regular Rate, Rhythm GI/Abdominal: Normal Bowel Sounds, Soft, Non-Tender Extremities: Pedal Edema Neurological: Alert, Oriented (person, place and month. Does answer questions appropriately today) Course - Vital Signs Last Recorded V/S: Last Vital Signs Temp 97.7 F 02/06/19 12:55 Pulse 57 L 02/06/19 12:55 Resp 18 02/06/19 12:55 BP 125/47 L 02/06/19 12:55 Pulse Ox 97 02/06/19 12:55 - Orders/Labs/Meds Orders: Active Orders 24 hr Category Date Time Status Head wo Cont [CT] Stat Exams 02/06/19 13:13 Taken Labs: Laboratory Tests 02/06/19 02/06/19 Range/Units 13:10 13:10 WBC 7.9 (5.0-10.0) 10^3/uL RBC 4.77 (4.00-5.50) 10^6/uL Hgb 14.0 (12.0-16.0) g/dL Hct 40.3 (37.0-47.0) % MCV 84.5 (82.0-94.0) fL MCH 29.4 (27.0-32.0) pg MCHC 34.7 (33.0-38.0) g/dL RDW Coeff of Ines 13.8 (11.0-15.0) % Plt Count 335 (150-400) 10^3/uL Neut % (Auto) 68.2 (35-85) % Lymph % (Auto) 11.8 (10-55) % [place] % (Auto) 17.4 H (0-16) % Eos % (Auto) 2.3 (0-5) % Baso % (Auto) 0.3 (0-3) % Neut # (Auto) 5.42 (1.80-7.00) 10^3/uL Lymph # (Auto) 0.94 L (1.00-4.80) 10^3/uL [place] # (Auto) 1.38 H (0.00-0.80) 10^3/uL Eos # (Auto) 0.18 (0.00-0.45) 10^3/uL Baso # (Auto) 0.02 10^3/uL Sodium 128 L (136-145) mEq/L Potassium 3.8 (3.5-5.0) mEq/L Chloride 92 L (98-106) mEq/L Carbon Dioxide 27 (21-32) mmol/L BUN 15 (7-18) mg/dL Creatinine 0.9 (0.6-1.0) mg/dL Est Cr Clr Drug Dosing 36.43 mL/min Estimated GFR (MDRD) 59 L (>=60) mL/min Glucose 161 H D (75-99) mg/dL Calcium 9.2 (8.4-10.1) mg/dL Total Bilirubin 0.3 (0.0-1.0) mg/dL AST 27 (15-37) U/L ALT 17 (12-78) U/L Alkaline Phosphatase 98 (46-116) U/L C-Reactive Protein 1.4 H (0.2-0.8) mg/dL Total Protein 6.9 (6.4-8.2) g/dL Albumin 3.3 L (3.4-5.0) g/dL - Re-Assessments/Exams Free Text/Narrative Re-Assessment/Exam: 02/06/19 Labs noted, sodium low at 128. Other labs stable. CT scan of her head is negative. discussed with Dr. Mo who also evaluated the patient. Family aware of lab results and CT findings. Will hold HCTZ and see if lethargy improves once sodium improves. If confusion and lethargy persist after the next week or so, will consider MRI of her head. Will repeat BMP in 2 weeks. Hold off on the gabapentin or lyrica at this point unless she develops worsening symptoms. Patient denies any numbness or burning today. Family comfortable with plan. Departure - Departure Time of Disposition: 14:07 Disposition: Home, Self-Care 01 Condition: Fair Clinical Impression: Hyponatremia - Discharge Information *PRESCRIPTION DRUG MONITORING PROGRAM REVIEWED*: No *COPY OF PRESCRIPTION DRUG MONITORING REPORT IN PATIENT SIM: No Referrals: Daren Mo MD [Primary Care Provider] - Forms: ED Department Discharge Additional Instructions: 1. Stop HCTZ 2. Monitor edema/blood pressure daily 3. Repeat BMP in 2 weeks with Magnesium 4. Call if symptoms do not improve Sepsis Event Note - Evaluation Sepsis Screening Result: No Definite Risk - Focused Exam Vital Signs: Vital Signs Temp Pulse Resp BP Pulse Ox 02/06/19 12:55 97.7 F 57 L 18 125/47 L 97 Date Exam was Performed: 02/06/19 Time Exam was Performed: 18:08 - My Orders Last 24 Hours: My Active Orders 02/06/19 13:13 Head wo Cont [CT] Stat - Assessment/Plan Last 24 Hours: My Active Orders 02/06/19 13:13 Head wo Cont [CT] Stat
== END 2019-02-06 14:21 | disposition home or self-care (01) ==
LOC: CC.ED 12:50
DX: E87.1 Hypo-osmolality and hyponatremia (principal); I10 Essential (primary) hypertension; Z79.899 Other long term (current) drug therapy
CPT/HCPCS: 36415; 70450; 80053; 85025; 86140; 99284; 99285-25

== ENCOUNTER 2019-10-16 21:54 | Emergency (ER) | payer MEDICARE, OTHER, MEDICAID ==
[2019-10-16 22:20] LABS: CHLORIDE,CL 100 mEq/L (98-106); SODIUM,NA 137 mEq/L (136-145)
--- NOTE | 2019-10-16 22:46 | EDM.PDOC ---
ED HPI GENERAL MEDICAL PROBLEM - General Chief Complaint: Neuro Symptoms/Deficits Stated Complaint: Stroke? Time Seen by Provider: 10/16/19 21:55 Source of Information: Reports: EMS, RN History Limitations: Reports: Altered Mental Status - History of Present Illness INITIAL COMMENTS - FREE TEXT/NARRATIVE: Pt arrived per EMS from [facility] with left sided weakness and decrease in res ponsiveness. When EMS picked her up blood sugar was 26 and they did give D50 with return of neuro status to baseline. (RN on run is RN also at [facility] and could verify that her mental status was her baseline). She is confused slightly but answers appropriately. When she arrived here she was alert talking. PERRL at 3mm equally. no facial drooping, She followed commands for neuro exam. Right sided upper extremity is slightly weaker than the left side and that is normal since she had humeral fracture in the past. moves both lower extremities equally and on command. NIHSS score = 0 on admission. Onset: Sudden - Related Data Allergies Allergy/AdvReac Type Severity Reaction Status Date / Time No Known Allergies Allergy Verified 10/16/19 22:43 Home Meds: Home Meds Acetaminophen [Tylenol Extra Strength] 500 mg PO Q4HR PRN 06/18/14 [History] Fosinopril Sodium 80 mg PO DAILY 06/18/14 [History] Insuln Asp Prot/Insulin Aspart [NovoLOG Mix 70-30] 22 units SUBCUT BEDTIME 06/18/14 [History] Insuln Asp Prot/Insulin Aspart [NovoLOG Mix 70-30] 45 units SUBCUT WITHBREAKFAST 06/18/14 [History] Rosuvastatin Calcium [Crestor] 10 mg PO DAILY 06/18/14 [History] amLODIPine Besylate [Amlodipine Besylate] 10 mg PO DAILY 06/18/14 [History] atenoloL [Tenormin] 25 mg PO DAILY 06/18/14 [History] Donepezil [Aricept] 10 mg PO BEDTIME 02/22/16 [History] Aspirin 81 mg PO DAILY 08/16/16 [History] Hydrochlorothiazide 12.5 mg PO DAILY 08/16/16 [History] Acetaminophen 500 mg PO BID 05/13/18 [History] Ferrous Sulfate 325 mg PO DAILY 05/13/18 [History] Krill/Om-3/DHA/EPA/Phospho/Ast [Krill Oil 500 mg Softgel] 1 cap PO DAILY 05/13/18 [History] Loratadine 10 mg PO DAILY 05/13/18 [History] Lutein/Min/Vit C/Vit E Acetate [Ocuvite Lutein] 1 cap PO DAILY 05/13/18 [History] Melatonin 5 mg PO DAILY 05/13/18 [History] Past Medical History HEENT History: Reports: Impaired Vision Cardiovascular History: Reports: High Cholesterol, Hypertension Gastrointestinal History: Reports: GERD 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 - Infectious Disease History Infectious Disease History: Reports: Chicken Pox - Past Surgical History HEENT Surgical History: Reports: Cataract Surgery Cardiovascular Surgical History: Reports: None GI Surgical History: Reports: None Endocrine Surgical History: Reports: None Musculoskeletal Surgical History: Reports: Carpal Tunnel, Other (See Below) Other Musculoskeletal Surgeries/Procedures:: shoulder fx - History Comment History Comment: Reviewed and agree with nursing assessment. Social & Family History - Family History Family Medical History: Noncontributory Musculoskeletal: Reports: Arthritis Endocrine/Metabolic: Reports: Diabetes, type II Hematologic: Reports: None Immunologic: Reports: None - Caffeine Use Caffeine Use: Reports: None - Living Situation & Occupation Living situation: Reports: , Extended Care Facility Occupation: Retired ED ROS GENERAL - Review of Systems Review Of Systems: See Below Constitutional: Reports: No Symptoms HEENT: Reports: No Symptoms Respiratory: Reports: No Symptoms Cardiovascular: Reports: No Symptoms GI/Abdominal: Reports: No Symptoms : Reports: Incontinence Musculoskeletal: Reports: Back Pain (Is chronic) Skin: Reports: Bruising (to right knee from previous fall last week onto her knee.) Neurological: Denies: Confusion, Headache, Change in Speech ED EXAM, NEURO - Physical Exam Exam: See Below Exam Limited By: No Limitations General Appearance: Alert, No Apparent Distress Eye Exam: Bilateral Eye: PERRL Ears: Normal External Exam, Normal TMs Nose: Normal Inspection Throat/Mouth: Normal Inspection Head Exam: Atraumatic, Normocephalic Neck: Normal Inspection, Supple, Non-Tender, Full Range of Motion Respiratory/Chest: No Respiratory Distress, Lungs Clear, Normal Breath Sounds Cardiovascular: Normal Peripheral Pulses, Regular Rate, Rhythm, No Edema GI/Abdominal: Normal Bowel Sounds, Soft, Non-Tender, No Organomegaly Neurological: Alert, Normal Mood/Affect Extremities: Normal Inspection, Normal Capillary Refill Skin Exam: Warm, Dry, Intact Course - Orders/Labs/Meds Orders: Active Orders 24 hr Category Date Time Status Chest 2V [CR] Stat Exams 10/16/19 21:49 Ordered Head wo Cont [CT] Stat Exams 10/16/19 21:48 Ordered EKG 12 Lead [EK] Stat Ther 10/16/19 21:48 Ordered Labs: Laboratory Tests 10/16/19 10/16/19 10/16/19 Range/Units 22:00 22:00 22:00 WBC 10.2 H (5.0-10.0) 10^3/uL RBC 4.37 (4.00-5.50) 10^6/uL Hgb 12.9 (12.0-16.0) g/dL Hct 38.4 (37.0-47.0) % MCV 87.9 (82.0-94.0) fL MCH 29.5 (27.0-32.0) pg MCHC 33.6 (33.0-38.0) g/dL RDW Coeff of Ines 15.1 H (11.0-15.0) % Plt Count 295 (150-400) 10^3/uL Neut % (Auto) 78.3 (35-85) % Lymph % (Auto) 10.0 (10-55) % [place] % (Auto) 9.8 (0-16) % Eos % (Auto) 1.7 (0-5) % Baso % (Auto) 0.2 (0-3) % Neut # (Auto) 8.00 H (1.80-7.00) 10^3/uL Lymph # (Auto) 1.02 (1.00-4.80) 10^3/uL [place] # (Auto) 1.00 H (0.00-0.80) 10^3/uL Eos # (Auto) 0.17 (0.00-0.45) 10^3/uL Baso # (Auto) 0.02 10^3/uL PT 11.0 (9.7-12.3) SEC INR 1.09 (0.92-1.18) Sodium 137 (136-145) mEq/L Potassium 3.5 D (3.5-5.0) mEq/L Chloride 100 (98-106) mEq/L Carbon Dioxide 29 (21-32) mmol/L BUN 13 (7-18) mg/dL Creatinine 0.9 (0.6-1.0) mg/dL Est Cr Clr Drug Dosing TNP Estimated GFR (MDRD) 59 L (>=60) mL/min Glucose 157 H D (75-99) mg/dL Calcium 8.8 (8.4-10.1) mg/dL Total Bilirubin 0.3 (0.0-1.0) mg/dL AST 18 (15-37) U/L ALT 17 (12-78) U/L Alkaline Phosphatase 108 (46-116) U/L Lactate Dehydrogenase 172 (100-190) U/L Creatine Kinase 123 (21-215) U/L Troponin I < 0.017 (0.00-0.06) ng/mL Total Protein 6.5 (6.4-8.2) g/dL Albumin 3.0 L (3.4-5.0) g/dL COVID-19 (SUSHMA) (NEGATIVE) 10/16/19 Range/Units 22:00 WBC (5.0-10.0) 10^3/uL RBC (4.00-5.50) 10^6/uL Hgb (12.0-16.0) g/dL Hct (37.0-47.0) % MCV (82.0-94.0) fL MCH (27.0-32.0) pg MCHC (33.0-38.0) g/dL RDW Coeff of Ines (11.0-15.0) % Plt Count (150-400) 10^3/uL Neut % (Auto) (35-85) % Lymph % (Auto) (10-55) % [place] % (Auto) (0-16) % Eos % (Auto) (0-5) % Baso % (Auto) (0-3) % Neut # (Auto) (1.80-7.00) 10^3/uL Lymph # (Auto) (1.00-4.80) 10^3/uL [place] # (Auto) (0.00-0.80) 10^3/uL Eos # (Auto) (0.00-0.45) 10^3/uL Baso # (Auto) 10^3/uL PT (9.7-12.3) SEC INR (0.92-1.18) Sodium (136-145) mEq/L Potassium (3.5-5.0) mEq/L Chloride (98-106) mEq/L Carbon Dioxide (21-32) mmol/L BUN (7-18) mg/dL Creatinine (0.6-1.0) mg/dL Est Cr Clr Drug Dosing Estimated GFR (MDRD) (>=60) mL/min Glucose (75-99) mg/dL Calcium (8.4-10.1) mg/dL Total Bilirubin (0.0-1.0) mg/dL AST (15-37) U/L ALT (12-78) U/L Alkaline Phosphatase (46-116) U/L Lactate Dehydrogenase (100-190) U/L Creatine Kinase (21-215) U/L Troponin I (0.00-0.06) ng/mL Total Protein (6.4-8.2) g/dL Albumin (3.4-5.0) g/dL COVID-19 (SUSHMA) Negative (NEGATIVE) - Re-Assessments/Exams Free Text/Narrative Re-Assessment/Exam: 10/16/19 23:04 CT scan is unchanged. Will discharge back to [facility]. Departure - Departure Time of Disposition: 23:05 Disposition: DC/Tfer to [facility] 64 Condition: Fair Clinical Impression: Hypoglycemia associated with diabetes - Discharge Information *PRESCRIPTION DRUG MONITORING PROGRAM REVIEWED*: Not Applicable *COPY OF PRESCRIPTION DRUG MONITORING REPORT IN PATIENT SIM: Not Applicable Additional Instructions: Make sure she eats supper when giving PM insulin continue same meds recheck if any new concerns. - Problem List & Annotations (1) Hypoglycemia associated with diabetes SNOMED Code(s): 100025625, 132513296 Code(s): E11.649 - TYPE 2 DIABETES MELLITUS WITH HYPOGLYCEMIA WITHOUT COMA Status: Acute Priority: High - Problem List Review Problem List Initiated/Reviewed/Updated: Yes - My Orders Last 24 Hours: My Active Orders 10/16/19 21:48 Head wo Cont [CT] Stat EKG 12 Lead [EK] Stat 10/16/19 21:49 Chest 2V [CR] Stat - Assessment/Plan Last 24 Hours: My Active Orders 10/16/19 21:48 Head wo Cont [CT] Stat EKG 12 Lead [EK] Stat 10/16/19 21:49 Chest 2V [CR] Stat
[2019-10-16 22:48] VITALS: BP 140/55; PULSE 65
== END 2019-10-16 23:33 | disposition home or self-care (01) ==
LOC: CC.ED 21:54
DX: E11.649 Type 2 diabetes mellitus with hypoglycemia without coma (principal); Z20.828 Contact with and (suspected) exposure to other viral communicable diseases; I10 Essential (primary) hypertension; E78.00 Pure hypercholesterolemia, unspecified; E11.40 Type 2 diabetes mellitus with diabetic neuropathy, unspecified; Z79.82 Long term (current) use of aspirin; Z79.4 Long term (current) use of insulin; Z79.899 Other long term (current) drug therapy
CPT/HCPCS: 36415; 70450; 71045; 80053; 82550; 83615; 84484; 85025; 85610; 93005; 99284; 99285; U0002

== ENCOUNTER 2021-01-23 18:25 | Emergency (ER) | payer MEDICARE, OTHER, MEDICAID ==
[2021-01-23 18:58] LABS: CHLORIDE,CL 105 mEq/L (98-106); SODIUM,NA 145 mEq/L (136-145)
--- NOTE | 2021-01-23 19:01 | EDM.PDOC ---
ED HPI GENERAL MEDICAL PROBLEM - General Chief Complaint: General Stated Complaint: AMS, hit head in [facility], was not seen by provider at that time Time Seen by Provider: 01/23/21 18:25 Source of Information: Reports: EMS, Family, [facility] Records, Other ([facility] staff) History Limitations: Reports: Altered Mental Status - History of Present Illness Onset: Gradual Onset Date: 01/20/21 Duration: Getting Worse Location: Reports: Head Quality: Reports: Other (unable to verbalize, withdraws from pain and moans) Associated Symptoms: Reports: Confusion, Weakness Treatments DIRECTOR STYLE: Reports: Other (see below) (on tramadol at halfway) - Related Data Allergies Allergy/AdvReac Type Severity Reaction Status Date / Time No Known Allergies Allergy Verified 01/23/21 18:40 Home Meds: Home Meds Acetaminophen [Tylenol Extra Strength] 500 mg PO Q4HR PRN 06/18/14 [History] Fosinopril Sodium 40 mg PO DAILY 06/18/14 [History] Insuln Asp Prot/Insulin Aspart [NovoLOG Mix 70-30] 18 units SUBCUT DAILY 06/18/14 [History] Insuln Asp Prot/Insulin Aspart [NovoLOG Mix 70-30] 36 units SUBCUT QAM 06/18/14 [History] Rosuvastatin Calcium [Crestor] 10 mg PO DAILY 06/18/14 [History] amLODIPine Besylate [Amlodipine Besylate] 10 mg PO DAILY 06/18/14 [History] atenoloL [Tenormin] 25 mg PO DAILY 06/18/14 [History] Donepezil [Aricept] 10 mg PO BEDTIME 02/22/16 [History] Aspirin 81 mg PO DAILY 08/16/16 [History] Acetaminophen 500 mg PO BID 05/13/18 [History] Ferrous Sulfate 325 mg PO DAILY 05/13/18 [History] Krill/Om-3/DHA/EPA/Phospho/Ast [Krill Oil 500 mg Softgel] 1 cap PO DAILY 05/13/18 [History] Loratadine 10 mg PO DAILY 05/13/18 [History] Melatonin 5 mg PO BEDTIME 05/13/18 [History] Docusate Sodium [Colace] 200 mg PO DAILY 01/23/21 [History] traMADol [Ultram] 50 mg PO TID 01/23/21 [History] Past Medical History HEENT History: Reports: Impaired Vision Cardiovascular History: Reports: High Cholesterol, Hypertension Gastrointestinal History: Reports: GERD [employer]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 - Infectious Disease History Infectious Disease History: Reports: Chicken Pox - Past Surgical History HEENT Surgical History: Reports: Cataract Surgery Cardiovascular Surgical History: Reports: None GI Surgical History: Reports: None Endocrine Surgical History: Reports: None Musculoskeletal Surgical History: Reports: Carpal Tunnel, Other (See Below) Other Musculoskeletal Surgeries/Procedures:: shoulder fx - History Comment History Comment: Reviewed and agree with nursing assessment. Social & Family History - Family History Family Medical History: No Pertinent Family History Musculoskeletal: Reports: Arthritis Endocrine/Metabolic: Reports: Diabetes, type II Hematologic: Reports: None Immunologic: Reports: None - Caffeine Use Caffeine Use: Reports: None - Living Situation & Occupation Living situation: Reports: , Extended Care Facility Occupation: Retired ED ROS GENERAL - Review of Systems Review Of Systems: See Below Constitutional: Reports: Malaise, Weakness HEENT: Reports: No Symptoms Respiratory: Reports: No Symptoms Cardiovascular: Reports: No Symptoms Endocrine: Reports: No Symptoms GI/Abdominal: Reports: No Symptoms : Reports: No Symptoms Musculoskeletal: Reports: Muscle Pain, Muscle Stiffness, Other (fell on right side) Skin: Reports: Bruising, Wound (skin tear rght arm, steri-strips to small areas on right side of head/face) Neurological: Reports: Confusion, Pre-Existing Deficit, Weakness Psychiatric: Reports: No Symptoms Hematologic/Lymphatic: Reports: No Symptoms Immunologic: Reports: No Symptoms ED EXAM, GENERAL - Physical Exam Exam: See Below Exam Limited By: Uncooperative General Appearance: Alert, No Apparent Distress Eye Exam: Bilateral Eye: EOMI, Normal Inspection (As much as can be determined with pt being uncooperative and squeezing her eyes shut) Ears: Normal External Exam Nose: Normal Inspection, Normal Mucosa, No Blood Throat/Mouth: Normal Inspection, Normal Lips, Normal Gums, Normal Oropharynx, No Airway Compromise Head: Facial Swelling, Facial Tenderness Neck: Normal Inspection, Supple, Non-Tender, Full Range of Motion Respiratory/Chest: No Respiratory Distress, Lungs Clear, Normal Breath Sounds, No Accessory Muscle Use, Chest Non-Tender Cardiovascular: Normal Peripheral Pulses, Regular Rate, Rhythm, No Edema GI/Abdominal: Normal Bowel Sounds, Soft, Non-Tender Back Exam: Normal Inspection Extremities: Non-Tender, Normal Capillary Refill Neurological: Alert, Inattentive, Slow to Respond, Other (pt has dementia, but daughter states she is not at her norm) Psychiatric: Flat Affect Skin Exam: Warm, Dry, Ecchymosis, Wound/Incision (skin tear right arm, steri- strips to face/head, no active bldg) Lymphatic: No Adenopathy Course - Vital Signs Last Recorded V/S: Last Vital Signs Temp 99.5 F 01/23/21 18:40 Pulse 69 01/23/21 18:40 Resp 18 01/23/21 18:40 BP 147/60 H 01/23/21 18:40 Pulse Ox 94 L 01/23/21 18:40 - Orders/Labs/Meds Orders: Active Orders 24 hr Category Date Time Status Head wo Cont [CT] Stat Exams 01/23/21 18:25 Taken CULTURE URINE [RM] Stat Lab 01/23/21 18:35 Received Labs: Laboratory Tests 01/23/21 01/23/21 01/23/21 Range/Units 18:35 18:35 18:35 WBC 10.3 (4.0-11.0) 10^3/uL RBC 4.87 (4.00-5.50) x10^6/uL Hgb 14.6 (12.0-16.0) g/dL Hct 44.0 (37.0-47.0) % MCV 90.3 (83.0-97.0) fL MCH 30.0 (27.0-32.0) pg MCHC 33.2 (32.0-36.0) g/dL RDW Coeff of Ines 14.6 (11.0-15.0) % Plt Count 259 (150-400) 10^3/uL Immature Gran % (Auto) 0.1 (0.0-4.9) % Neut % (Auto) 74.5 H (41-71) % Lymph % (Auto) 14.5 L (24-44) % [place] % (Auto) 9.2 (0-10) % Eos % (Auto) 1.3 (0-6) % Baso % (Auto) 0.4 (0-1) % Neut # (Auto) 7.66 (1.80-8.00) x10^3/uL Lymph # (Auto) 1.49 (0.60-5.00) 10^3/uL [place] # (Auto) 0.94 (0.00-1.50) 10^3/uL Eos # (Auto) 0.13 (0.00-1.50) 10^3/uL Baso # (Auto) 0.04 (0.00-0.50) 10^3/uL Immature Gran # (Auto) 0.01 (0.00-0.49) 10^3/uL Sodium 145 (136-145) mEq/L Potassium 4.5 (3.5-5.0) mEq/L Chloride 105 (98-106) mEq/L Carbon Dioxide 27 (21-32) mmol/L BUN 22 H D (7-18) mg/dL Creatinine 1.1 H (0.6-1.0) mg/dL Est Cr Clr Drug Dosing TNP Estimated GFR (MDRD) 47 L (>=60) mL/min Glucose 81 (75-99) mg/dL Calcium 9.4 (8.4-10.1) mg/dL Total Bilirubin 0.6 (0.0-1.0) mg/dL AST 27 (15-37) U/L ALT 28 (12-78) U/L Alkaline Phosphatase 97 (46-116) U/L Total Protein 7.1 (6.4-8.2) g/dL Albumin 3.3 L (3.4-5.0) g/dL Urine Color Yellow (YELLOW) Urine Appearance Slightly cloudy (CLEAR) Urine pH 5.5 (4.5-8.0) Ur Specific [place] 1.025 H (1.003-1.020) Urine Protein 30 H (NEGATIVE) mg/dL Urine Glucose (UA) Negative (NEGATIVE) mg/dL Urine Ketones 15 H (NEGATIVE) mg/dL Urine Occult Blood Trace-intact H (NEGATIVE) Urine Nitrite Negative (NEGATIVE) Urine Bilirubin Small H (NEGATIVE) Urine Urobilinogen 0.2 (0.2-1.0) EU/dL Ur Leukocyte Esterase Small H (NEGATIVE) Urine RBC 0-5 (0-5) /HPF Urine WBC 50-75 H (0-5) /HPF Ur Epithelial Cells Few H (NOT SEEN) /HPF Urine Bacteria Moderate H (NOT SEEN) /HPF Urine Mucus Moderate H (NOT SEEN) /HPF Meds: Medications Discontinued Medications Generic Name Dose Route Start Last Admin Trade Name Freq PRN Reason Stop Dose Admin Sodium Chloride 250 mls @ 999 mls/hr 01/23/21 19:45 01/23/21 19:46 Normal Saline IV 01/23/21 20:01 999 mls/hr ASDIRECTED DEBBIE Administration Nitrofurantoin Macrocrystals 100 mg 01/24/21 08:00 01/23/21 19:47 Nitrofurantoin Monohydrate/Macrocrystalline 100 Mg Cap PO 01/29/21 08:01 100 mg BIDMEALS DEBBIE Administration Nitrofurantoin Macrocrystals Confirm 01/23/21 19:24 01/23/21 20:33 Nitrofurantoin Monohydrate/Macrocrystalline 100 Mg Cap Administered 01/23/21 19:25 Not Given Dose 100 mg .[facility] Radiology Interpretation CT Results Date: 01/23/21 (Radiologist reports nothing actue found) - Re-Assessments/Exams Free Text/Narrative Re-Assessment/Exam: 01/23/21 20:11 Gave 250ml NS IV bolus in ER and Macrobid 100mg po. Updated family on results and plan. Departure - Departure Time of Disposition: 21:45 Disposition: Home, Self-Care 01 Condition: Good Clinical Impression: UTI (urinary tract infection) Qualifiers: Urinary tract infection type: acute cystitis Hematuria presence: with hematuria Qualified Code(s): N30.01 - Acute cystitis with hematuria Fall Qualifiers: Encounter type: initial encounter Qualified Code(s): W19.XXXA - Unspecified fall, initial encounter - Discharge Information Instructions: Urinary Tract Infection, Adult Referrals: Daren Mo MD [Primary Care Provider] - Forms: ED Department Discharge Sepsis Event Note (ED) - Focused Exam Vital Signs: Vital Signs Temp Pulse Resp BP Pulse Ox 01/23/21 18:40 99.5 F 69 18 147/60 H 94 L - Problem List & Annotations (1) Fall SNOMED Code(s): 1392276, 452188819 Code(s): W19.XXXA - UNSPECIFIED FALL, INITIAL ENCOUNTER Status: Acute Qualifiers: Encounter type: initial encounter Qualified Code(s): W19.XXXA - Unspecified fall, initial encounter (2) Altered mental status SNOMED Code(s): 471593304 Code(s): R41.82 - ALTERED MENTAL STATUS, UNSPECIFIED Status: Acute Qualifiers: Altered mental status type: unspecified Qualified Code(s): R41.82 - Altered mental status, unspecified (3) UTI (urinary tract infection) SNOMED Code(s): 22598951 Code(s): N39.0 - URINARY TRACT INFECTION, SITE NOT SPECIFIED Status: Acute Qualifiers: Urinary tract infection type: acute cystitis Hematuria presence: with hematuria Qualified Code(s): N30.01 - Acute cystitis with hematuria - Problem List Review Problem List Initiated/Reviewed/Updated: Yes - My Orders Last 24 Hours: My Active Orders 01/23/21 18:25 Head wo Cont [CT] Stat 01/23/21 18:35 CULTURE URINE [RM] Stat - Assessment/Plan Last 24 Hours: My Active Orders 01/23/21 18:25 Head wo Cont [CT] Stat 01/23/21 18:35 CULTURE URINE [RM] Stat
[2021-01-23 19:06] VITALS: BP 147/60; PULSE 69
[2021-01-23] MEDS: Sodium Chloride 0.9% 250 ML IV SCH (19:46)
[2021-01-23] MEDS: Nitrofurantoin Monohydrate/Macrocrystalline 100 MG Cap PO SCH (19:47)
[2021-01-23] MEDS: Nitrofurantoin Monohydrate/Macrocrystalline 100 MG Cap ONE (20:33)
== END 2021-01-23 21:35 | disposition home or self-care (01) ==
LOC: CC.ED 18:25
DX: N30.01 Acute cystitis with hematuria (principal); S41.111A Laceration without foreign body of right upper arm, initial encounter; E78.00 Pure hypercholesterolemia, unspecified; I10 Essential (primary) hypertension; K21.9 Gastro-esophageal reflux disease without esophagitis; E11.40 Type 2 diabetes mellitus with diabetic neuropathy, unspecified; F03.90 Unspecified dementia, unspecified severity, without behavioral disturbance, psychotic disturbance, mood disturbance, and anxiety; M19.90 Unspecified osteoarthritis, unspecified site; Z79.82 Long term (current) use of aspirin; Z79.4 Long term (current) use of insulin; Z79.899 Other long term (current) drug therapy; W19.XXXA Unspecified fall, initial encounter
CPT/HCPCS: 36415; 70450; 80053; 81001; 85025; 87086; 87088; 99285; A9270; J7050

== ENCOUNTER 2021-01-24 22:15 | Inpatient (IN) | payer MEDICARE, OTHER, MEDICAID ==
--- NOTE | 2021-01-24 22:25 | EDM.PDOC ---
ED HPI GENERAL MEDICAL PROBLEM - General Chief Complaint: General Stated Complaint: low blood sugar Time Seen by Provider: 01/24/21 22:17 Source of Information: Reports: EMS History Limitations: Reports: Altered Mental Status - History of Present Illness INITIAL COMMENTS - FREE TEXT/NARRATIVE: This is an 89-year-old female patient that presents to the ER via [facility] from the [facility] in [place]. Patient reportedly has had low blood sugars throughout the day. EMS reports that lowest reading was in the 30s. The [facility] staff had administered glucagon this evening. EMS reported that her initial blood sugar was in the 60s. EMS started an IV and administered 1 amp of D50. Last reported blood sugar was in the 170s per EMS. Patient had fallen last week and she has several bruises and skin tears. Patient with history of dementia. She does arouse to verbal stimuli. Report from [facility] staff is that she has not been eating. Was seen in the emergency department yesterday and was diagnosed with a urinary tract infection and started on Macrodantin at that time. Patient is on NovoLog insulin unknown if she got her morning dose but has not received any insulin tonight per her report. Onset: Gradual Duration: Getting Worse Associated Symptoms: Reports: Confusion - Related Data Allergies Allergy/AdvReac Type Severity Reaction Status Date / Time No Known Allergies Allergy Verified 01/24/21 22:36 Home Meds: Home Meds Acetaminophen [Tylenol Extra Strength] 500 mg PO Q4HR PRN 06/18/14 [History] Fosinopril Sodium 40 mg PO DAILY 06/18/14 [History] Insuln Asp Prot/Insulin Aspart [NovoLOG Mix 70-30] 18 units SUBCUT DAILY 06/18/14 [History] Insuln Asp Prot/Insulin Aspart [NovoLOG Mix 70-30] 36 units SUBCUT QAM 06/18/14 [History] Rosuvastatin Calcium [Crestor] 10 mg PO DAILY 06/18/14 [History] amLODIPine Besylate [Amlodipine Besylate] 10 mg PO DAILY 06/18/14 [History] atenoloL [Tenormin] 25 mg PO DAILY 06/18/14 [History] Donepezil [Aricept] 10 mg PO BEDTIME 02/22/16 [History] Aspirin 81 mg PO DAILY 08/16/16 [History] Acetaminophen 500 mg PO BID 05/13/18 [History] Ferrous Sulfate 325 mg PO DAILY 05/13/18 [History] Krill/Om-3/DHA/EPA/Phospho/Ast [Krill Oil 500 mg Softgel] 1 cap PO DAILY 05/13/18 [History] Loratadine 10 mg PO DAILY 05/13/18 [History] Melatonin 5 mg PO BEDTIME 05/13/18 [History] Docusate Sodium [Colace] 200 mg PO DAILY 01/23/21 [History] traMADol [Ultram] 50 mg PO TID 01/23/21 [History] Past Medical History HEENT History: Reports: Impaired Vision Cardiovascular History: Reports: High Cholesterol, Hypertension Gastrointestinal History: Reports: GERD 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 - Infectious Disease History Infectious Disease History: Reports: Chicken Pox - Past Surgical History HEENT Surgical History: Reports: Cataract Surgery Cardiovascular Surgical History: Reports: None GI Surgical History: Reports: None Endocrine Surgical History: Reports: None Musculoskeletal Surgical History: Reports: Carpal Tunnel, Other (See Below) Other Musculoskeletal Surgeries/Procedures:: shoulder fx - History Comment History Comment: Reviewed and agree with nursing assessment. Social & Family History - Family History Family Medical History: No Pertinent Family History Musculoskeletal: Reports: Arthritis Endocrine/Metabolic: Reports: Diabetes, type II Hematologic: Reports: None Immunologic: Reports: None - Caffeine Use Caffeine Use: Reports: None - Living Situation & Occupation Living situation: Reports: , Extended Care Facility Occupation: Retired ED ROS GENERAL - Review of Systems Review Of Systems: See Below Constitutional: Reports: Weakness, Fatigue HEENT: Reports: No Symptoms Respiratory: Reports: No Symptoms. Denies: Shortness of Breath Cardiovascular: Denies: Chest Pain, Edema Endocrine: Reports: Fatigue GI/Abdominal: Denies: Abdominal Pain, Nausea, Vomiting : Reports: Incontinence Skin: Reports: Bruising (multiple old bruises and skin tears), Wound Neurological: Reports: Confusion Psychiatric: Reports: Confusion ED EXAM, GENERAL - Physical Exam Exam: See Below Exam Limited By: Altered Mental Status General Appearance: Alert, No Apparent Distress Ears: Normal External Exam Nose: Normal Inspection, No Blood Throat/Mouth: Normal Inspection, Normal Lips, No Airway Compromise Head: Normocephalic, Other (bruising to right side of face and head) Neck: Normal Inspection, Supple Respiratory/Chest: No Respiratory Distress, Lungs Clear Cardiovascular: Normal Peripheral Pulses, No Edema GI/Abdominal: Normal Bowel Sounds, Soft, Non-Tender, No Distention (Female) Exam: Deferred Rectal (Female) Exam: Deferred Back Exam: No: CVA Tenderness (L), CVA Tenderness (R) Extremities: No Pedal Edema Neurological: Alert, Confused, Slow to Respond, Memory Loss Remote Events, Memory Loss Recent Events, Other (dementia) Psychiatric: Flat Affect Skin Exam: Warm, Dry, Ecchymosis (to right side face and eye), Wound/Incision (old skin tear to right elbow with sterstrips, two areas to forehead/face with steri-strips) Lymphatic: No Adenopathy Course - Vital Signs Last Recorded V/S: Last Vital Signs Temp 97 F 01/24/21 23:00 Pulse 51 L 01/24/21 23:00 Resp 16 01/24/21 23:00 BP 110/43 L 01/24/21 23:00 Pulse Ox 94 L 01/24/21 23:00 - Orders/Labs/Meds Orders: Active Orders 24 hr Category Date Time Status Patient Status Manage Transfer [TRANSFER] Routine ADT 01/24/21 23:06 Active Labs: Laboratory Tests 01/24/21 01/24/21 Range/Units 22:30 22:30 WBC 14.5 H (4.0-11.0) 10^3/uL RBC 4.70 (4.00-5.50) x10^6/uL Hgb 13.8 (12.0-16.0) g/dL Hct 42.2 (37.0-47.0) % MCV 89.8 (83.0-97.0) fL MCH 29.4 (27.0-32.0) pg MCHC 32.7 (32.0-36.0) g/dL RDW Coeff of Ines 14.6 (11.0-15.0) % Plt Count 246 (150-400) 10^3/uL Immature Gran % (Auto) 0.1 (0.0-4.9) % Neut % (Auto) 88.3 H (41-71) % Lymph % (Auto) 3.6 L (24-44) % [place] % (Auto) 7.8 (0-10) % Eos % (Auto) 0.0 (0-6) % Baso % (Auto) 0.2 (0-1) % Neut # (Auto) 12.84 H (1.80-8.00) x10^3/uL Lymph # (Auto) 0.53 L (0.60-5.00) 10^3/uL [place] # (Auto) 1.13 (0.00-1.50) 10^3/uL Eos # (Auto) 0.00 (0.00-1.50) 10^3/uL Baso # (Auto) 0.03 (0.00-0.50) 10^3/uL Immature Gran # (Auto) 0.01 (0.00-0.49) 10^3/uL Sodium 143 (136-145) mEq/L Potassium 4.2 (3.5-5.0) mEq/L Chloride 107 H (98-106) mEq/L Carbon Dioxide 28 (21-32) mmol/L BUN 24 H (7-18) mg/dL Creatinine 1.1 H (0.6-1.0) mg/dL Est Cr Clr Drug Dosing TNP Estimated GFR (MDRD) 47 L (>=60) mL/min Glucose 190 H D (75-99) mg/dL Calcium 8.8 (8.4-10.1) mg/dL Total Bilirubin 0.5 (0.0-1.0) mg/dL AST 23 (15-37) U/L ALT 25 (12-78) U/L Alkaline Phosphatase 94 (46-116) U/L Total Protein 6.8 (6.4-8.2) g/dL Albumin 3.0 L (3.4-5.0) g/dL Meds: Medications Discontinued Medications Generic Name Dose Route Start Last Admin Trade Name Freq PRN Reason Stop Dose Admin Ceftriaxone Sodium 1 gm 01/24/21 22:58 01/24/21 23:04 Ceftriaxone 1 Gm Vial IVPUSH 01/24/21 22:59 1 gm ONETIME ONE Administration - Re-Assessments/Exams Free Text/Narrative Re-Assessment/Exam: This is a 89-year-old female that presented to the emergency department via [facility] from [facility]. Patient was seen in the emergency department yesterday and was diagnosed with a urinary tract infection and was prescribed Macrodantin to be taken orally. Patient has not been eating or drinking per report from the senior care. They called the ambulance tonight because she has been hypoglycemic throughout the day. A CBC and CMP were collected today. The CBC showed an increased white blood cell count of 14.5 with a left shift. Patient blood sugar was 190 on the metabolic panel this is after receiving an amp of D50 per EMS. We will plan to admit to acute inpatient for the urinary tract infection and administer IV Rocephin every 24 hours. Patient was a little bradycardic in the emergency department we will hold atenolol. We will monitor her blood sugars. She received 500 mL bolus of normal saline in the emergency department. Will monitor intake and output. Family has been updated with the plan and is agreeable to admitting her to the hospital to treat the urinary tract infection and to continually monitor blood sugars. Departure - Departure Time of Disposition: 22:57 Disposition: Admitted As Inpatient 66 Condition: Poor Clinical Impression: UTI, Urinary tract infectious disease - Discharge Information *PRESCRIPTION DRUG MONITORING PROGRAM REVIEWED*: Not Applicable *COPY OF PRESCRIPTION DRUG MONITORING REPORT IN PATIENT SIM: Not Applicable Sepsis Event Note (ED) - Focused Exam Vital Signs: Vital Signs Temp Pulse Resp BP Pulse Ox 01/24/21 23:00 97 F 51 L 16 110/43 L 94 L 01/24/21 22:45 61 18 109/43 L 93 L 01/24/21 22:30 97.4 F 69 22 H 140/53 L 95 01/24/21 22:15 96.9 F 73 20 129/52 L 95 - Problem List & Annotations (1) UTI, Urinary tract infectious disease SNOMED Code(s): 91397551 Code(s): N39.0 - URINARY TRACT INFECTION, SITE NOT SPECIFIED Status: Acute Priority: High Current Visit: No (2) Hypoglycemia associated with diabetes SNOMED Code(s): 025969627, 591789840 Code(s): E11.649 - TYPE 2 DIABETES MELLITUS WITH HYPOGLYCEMIA WITHOUT COMA Status: Acute Priority: High Current Visit: No (3) Altered mental status SNOMED Code(s): 051045130 Code(s): R41.82 - ALTERED MENTAL STATUS, UNSPECIFIED Status: Acute Priority: High Current Visit: No Qualifiers: Altered mental status type: unspecified Qualified Code(s): R41.82 - Altered mental status, unspecified - Problem List Review Problem List Initiated/Reviewed/Updated: Yes - My Orders Last 24 Hours: My Active Orders 01/24/21 23:06 Patient Status Manage Transfer [TRANSFER] Routine - Assessment/Plan Admission H&P: Please use this note as an admission H&P Last 24 Hours: My Active Orders 01/24/21 23:06 Patient Status Manage Transfer [TRANSFER] Routine Plan: Plan to admit to acute inpatient for urinary tract infection. Will treat with IV antibiotics. Patient not eating or drinking. Has been hypoglycemic at the senior care. Will monitor blood sugars. Patient's been more obtunded per family. Urine cultures were obtained yesterday showing preliminary gram- positive cocci. Patient was started on Macrodantin p.o. but unknown if she has been able to take it due to not eating orally. Atenolol will be held as patient is bradycardic in the emergency department.
[2021-01-24 22:46] LABS: CHLORIDE,CL 107 mEq/L (98-106); SODIUM,NA 143 mEq/L (136-145)
[2021-01-24] MEDS ORDERED: cefTRIAXone 1 GM Vial IVPUSH ONE (22:58)
[2021-01-25] MEDS ORDERED: Acetaminophen 325 MG Tab PO PRN (00:25)
[2021-01-25] MEDS ORDERED: Enoxaparin 30 MG/0.3 ML Syringe SUBCUT SCH (00:25)
[2021-01-25] MEDS ORDERED: Sodium Chloride 0.9% 10 ML Syringe FLUSH PRN (00:25)
[2021-01-25] MEDS ORDERED: Docusate Sodium 100 MG Cap PO SCH (08:00)
[2021-01-25] MEDS ORDERED: Simvastatin 40 MG Tab PO SCH (08:00)
[2021-01-25] MEDS ORDERED: Insulin NPH HUM/REG Insulin HM 100 UNIT/ML 3 ML Vial SQ SCH (08:00)
[2021-01-25] MEDS: Loratadine 10 MG Tab PO SCH (08:04)
[2021-01-25] MEDS: Aspirin 81 MG Tab.EC PO SCH (08:04)
[2021-01-25] MEDS: Ferrous Sulfate 324 MG Tab.EC PO SCH (08:04)
[2021-01-25] MEDS: traMADol 50 MG Tab PO SCH ×3 (08:05→19:49)
[2021-01-25] MEDS: Lisinopril 20 MG Tab PO SCH (08:05)
[2021-01-25] MEDS: amLODIPine 10 MG Tab PO SCH (08:05)
[2021-01-25] MEDS: Acetaminophen 500 MG Tab PO SCH ×2 (08:05→19:49)
[2021-01-25] MEDS: Enoxaparin 30 MG/0.3 ML Syringe SUBCUT SCH (08:07)
[2021-01-25] MEDS ORDERED: Docusate Sodium 100 MG Cap PO PRN (10:30)
--- NOTE | 2021-01-25 13:13 | PN ---
DATE: 01/25/2021 S: Marleny is an 89-year-old, well known to me, who presents from [facility] of the [facility], was admitted by [facility] for UTI. She apparently had been having increased confusion and some hypoglycemia. Since she has been present here, she has been afebrile. She has not had any significant vital sign irregularities. Her saturations have been fine. Staff deny that she has had any cough. Lab work was reviewed from her admission. She had an elevated white count of 14,500 on admit, but otherwise no significant abnormalities of her lab. Urinalysis is not found on the chart, and it will be retrieved, and I believe urine culture is pending. O: GENERAL: Marleny is in her usual state. She smiles and is pleasant, but does not vocalize. Suffers from dementia. HEENT: Otherwise, grossly benign. NECK: Supple. LUNGS: Lung sounds appear to be clear. I do not hear any rales, rhonchi, or wheeze. CARDIAC: Tones are regular. ABDOMEN: Appears soft and nontender. EXTREMITIES: She has no peripheral edema. ASSESSMENT: 1. ALTERED MENTAL STATUS. 2. LIKELY URINARY TRACT INFECTION. 3. TYPE 2 DIABETES REQUIRING INSULIN WITH HYPOGLYCEMIA. 4. ALZHEIMER DEMENTIA. P: We will continue with IV antibiotics for now. Clinically, she looks like she is probably getting back to her baseline. She has not had any hypoglycemia since here. She is getting her usual insulin of 70/30 mix without any issues at this time. ADDENDUM: Marleny had had a fall with ecchymoses to the right side of her face, and looking at her admission report, I do not see that any scan was done due to her fall and head trauma with confusion. If there was not a CT done at the time of her admission, we will get one this morning. KIANNA/ZAIN /[id number]
[2021-01-25] MEDS: Insulin NPH HUM/REG Insulin HM 100 UNIT/ML 3 ML Vial SQ SCH (15:31)
[2021-01-25] MEDS: Melatonin 3 MG Tab PO SCH (19:49)
[2021-01-25] MEDS: Donepezil 5 MG Tab PO SCH (19:49)
[2021-01-25] MEDS: Simvastatin 40 MG Tab PO SCH (19:49)
[2021-01-25] MEDS: cefTRIAXone 1 GM Vial IVPUSH SCH (19:50)
--- NOTE | 2021-01-26 09:17 | PCM.PN ---
- General Info Date of Service: 01/26/21 Admission Dx/Problem (Free Text): UTI Altered Mental Status Weakness Subjective Update: Patient more alert this am, restless. Staff reports still not eating much of anything. has been afebrile now. Unable to obtain ROS as patient only answers yes to every question. Blood pressure high at times. Has not had any low blood sugars since admission. Not taking her meds, insulin has been held as not eating. Functional Status: Denies: Tolerating Diet, Ambulating - Review of Systems General: Reports: Weakness. Denies: Fever - Patient Data Vitals - Most Recent: Last Vital Signs Temp 97.8 F 01/26/21 04:00 Pulse 85 01/26/21 04:00 Resp 16 01/26/21 04:00 BP 171/64 H 01/26/21 04:00 Pulse Ox 94 L 01/26/21 04:00 Weight - Most Recent: 132 lb 6.4 oz I&O - Last 24 Hours: Intake & Output 01/25/21 01/26/21 01/26/21 22:59 06:59 14:59 Intake Total 200 0 Balance 200 0 Lab Results Last 24 Hours: Laboratory Results - last 24 hr 01/25/21 01/25/21 01/25/21 Range/Units 12:05 17:09 20:09 WBC (4.0-11.0) 10^3/uL RBC (4.00-5.50) x10^6/uL Hgb (12.0-16.0) g/dL Hct (37.0-47.0) % MCV (83.0-97.0) fL MCH (27.0-32.0) pg MCHC (32.0-36.0) g/dL RDW Coeff of Ines (11.0-15.0) % Plt Count (150-400) 10^3/uL Immature Gran % (Auto) (0.0-4.9) % Neut % (Auto) (41-71) % Lymph % (Auto) (24-44) % [place] % (Auto) (0-10) % Eos % (Auto) (0-6) % Baso % (Auto) (0-1) % Neut # (Auto) (1.80-8.00) x10^3/uL Lymph # (Auto) (0.60-5.00) 10^3/uL [place] # (Auto) (0.00-1.50) 10^3/uL Eos # (Auto) (0.00-1.50) 10^3/uL Baso # (Auto) (0.00-0.50) 10^3/uL Immature Gran # (Auto) (0.00-0.49) 10^3/uL POC Glucose 149 H 147 H 193 H (75-105) mg/dL 01/26/21 01/26/21 Range/Units 07:30 07:42 WBC 9.6 (4.0-11.0) 10^3/uL RBC 4.75 (4.00-5.50) x10^6/uL Hgb 14.3 (12.0-16.0) g/dL Hct 43.3 (37.0-47.0) % MCV 91.2 (83.0-97.0) fL MCH 30.1 (27.0-32.0) pg MCHC 33.0 (32.0-36.0) g/dL RDW Coeff of Ines 14.7 (11.0-15.0) % Plt Count 271 (150-400) 10^3/uL Immature Gran % (Auto) 0.2 (0.0-4.9) % Neut % (Auto) 77.8 H (41-71) % Lymph % (Auto) 12.6 L (24-44) % [place] % (Auto) 8.9 (0-10) % Eos % (Auto) 0.2 (0-6) % Baso % (Auto) 0.3 (0-1) % Neut # (Auto) 7.45 (1.80-8.00) x10^3/uL Lymph # (Auto) 1.21 (0.60-5.00) 10^3/uL [place] # (Auto) 0.85 (0.00-1.50) 10^3/uL Eos # (Auto) 0.02 (0.00-1.50) 10^3/uL Baso # (Auto) 0.03 (0.00-0.50) 10^3/uL Immature Gran # (Auto) 0.02 (0.00-0.49) 10^3/uL POC Glucose 208 H (75-105) mg/dL Med Orders - Current: Current Medications Acetaminophen (Acetaminophen 325 Mg Tab) 650 mg PO Q4H PRN PRN Reason: Pain (Mild 1-3)/fever Acetaminophen (Acetaminophen 500 Mg Tab) 500 mg PO BID [facility] Last Admin: 01/25/21 19:49 Dose: Not Given Documented by: Amlodipine Besylate (Amlodipine 10 Mg Tab) 10 mg PO DAILY [facility] Last Admin: 01/25/21 08:05 Dose: Not Given Documented by: Aspirin (Aspirin 81 Mg Tab.Ec) 81 mg PO DAILY [facility] Last Admin: 01/25/21 08:04 Dose: Not Given Documented by: Ceftriaxone Sodium (Ceftriaxone 1 Gm Vial) 1 gm IVPUSH Q24H [facility] Last Admin: 01/25/21 19:50 Dose: 1 gm Documented by: Docusate Sodium (Docusate Sodium 100 Mg Cap) 200 mg PO DAILY PRN PRN Reason: Constipation Donepezil HCl (Donepezil 5 Mg Tab) 10 mg PO BEDTIME [facility] Last Admin: 01/25/21 19:49 Dose: Not Given Documented by: Enoxaparin Sodium (Enoxaparin 30 Mg/0.3 Ml Syringe) 30 mg SUBCUT Q24H [facility] Last Admin: 01/25/21 08:07 Dose: 30 mg Documented by: Ferrous Sulfate (Ferrous Sulfate 324 Mg Tab.Ec) 324 mg PO DAILY [facility] Last Admin: 01/25/21 08:04 Dose: Not Given Documented by: Insulin NPH Beef/Pork (Insulin Nph Hum/Reg Insulin Hm 100 Unit/Ml 3 Ml Vial) 36 unit SQ QAM [facility] Insulin NPH Beef/Pork (Insulin Nph Hum/Reg Insulin Hm 100 Unit/Ml 3 Ml Vial) 18 unit SQ DAILY@1600 [facility] Last Admin: 01/25/21 15:31 Dose: Not Given Documented by: Lisinopril (Lisinopril 20 Mg Tab) 20 mg PO DAILY [facility] Last Admin: 01/25/21 08:05 Dose: Not Given Documented by: Loratadine (Loratadine 10 Mg Tab) 10 mg PO DAILY [facility] Last Admin: 01/25/21 08:04 Dose: Not Given Documented by: Melatonin (Melatonin 3 Mg Tab) 6 mg PO BEDTIME [facility] Last Admin: 01/25/21 19:49 Dose: Not Given Documented by: Simvastatin (Simvastatin 40 Mg Tab) 40 mg PO BEDTIME [facility] Last Admin: 01/25/21 19:49 Dose: Not Given Documented by: Sodium Chloride (Sodium Chloride 0.9% 10 Ml Syringe) 10 ml FLUSH ASDIRECTED PRN PRN Reason: Keep Vein Open Tramadol HCl (Tramadol 50 Mg Tab) 50 mg PO TID [facility] Last Admin: 01/25/21 19:49 Dose: Not Given Documented by: Discontinued Medications Ceftriaxone Sodium (Ceftriaxone 1 Gm Vial) 1 gm IVPUSH ONETIME ONE Stop: 01/24/21 22:59 Last Admin: 01/24/21 23:04 Dose: 1 gm Documented by: Docusate Sodium (Docusate Sodium 100 Mg Cap) 200 mg PO DAILY [facility] Last Admin: 01/25/21 08:04 Dose: Not Given Documented by: Insulin NPH Beef/Pork (Insulin Nph Hum/Reg Insulin Hm 100 Unit/Ml 3 Ml Vial) 18 unit SQ DAILY [facility] Last Admin: 01/25/21 08:05 Dose: Not Given Documented by: Simvastatin (Simvastatin 40 Mg Tab) 40 mg PO DAILY [facility] Last Admin: 01/25/21 08:05 Dose: Not Given Documented by: - Exam General: Alert, Other (restless, trying to climb out of bed) HEENT: Other (bruising noted to right side of face from previous fall) Neck: Supple Lungs: Clear to Auscultation, Normal Respiratory Effort Cardiovascular: Regular Rate, Regular Rhythm GI/Abdominal Exam: Normal Bowel Sounds, Soft, Non-Tender Extremities: Normal Inspection, No Pedal Edema Skin: Warm, Dry Neurological: No New Focal Deficit Psy/Mental Status: Alert, Agitated - Patient Data Lab Results Last 24 hrs: Laboratory Results - last 24 hr 01/25/21 01/25/21 01/25/21 Range/Units 12:05 17:09 20:09 WBC (4.0-11.0) 10^3/uL RBC (4.00-5.50) x10^6/uL Hgb (12.0-16.0) g/dL Hct (37.0-47.0) % MCV (83.0-97.0) fL MCH (27.0-32.0) pg MCHC (32.0-36.0) g/dL RDW Coeff of Ines (11.0-15.0) % Plt Count (150-400) 10^3/uL Immature Gran % (Auto) (0.0-4.9) % Neut % (Auto) (41-71) % Lymph % (Auto) (24-44) % [place] % (Auto) (0-10) % Eos % (Auto) (0-6) % Baso % (Auto) (0-1) % Neut # (Auto) (1.80-8.00) x10^3/uL Lymph # (Auto) (0.60-5.00) 10^3/uL [place] # (Auto) (0.00-1.50) 10^3/uL Eos # (Auto) (0.00-1.50) 10^3/uL Baso # (Auto) (0.00-0.50) 10^3/uL Immature Gran # (Auto) (0.00-0.49) 10^3/uL POC Glucose 149 H 147 H 193 H (75-105) mg/dL 01/26/21 01/26/21 Range/Units 07:30 07:42 WBC 9.6 (4.0-11.0) 10^3/uL RBC 4.75 (4.00-5.50) x10^6/uL Hgb 14.3 (12.0-16.0) g/dL Hct 43.3 (37.0-47.0) % MCV 91.2 (83.0-97.0) fL MCH 30.1 (27.0-32.0) pg MCHC 33.0 (32.0-36.0) g/dL RDW Coeff of Ines 14.7 (11.0-15.0) % Plt Count 271 (150-400) 10^3/uL Immature Gran % (Auto) 0.2 (0.0-4.9) % Neut % (Auto) 77.8 H (41-71) % Lymph % (Auto) 12.6 L (24-44) % [place] % (Auto) 8.9 (0-10) % Eos % (Auto) 0.2 (0-6) % Baso % (Auto) 0.3 (0-1) % Neut # (Auto) 7.45 (1.80-8.00) x10^3/uL Lymph # (Auto) 1.21 (0.60-5.00) 10^3/uL [place] # (Auto) 0.85 (0.00-1.50) 10^3/uL Eos # (Auto) 0.02 (0.00-1.50) 10^3/uL Baso # (Auto) 0.03 (0.00-0.50) 10^3/uL Immature Gran # (Auto) 0.02 (0.00-0.49) 10^3/uL POC Glucose 208 H (75-105) mg/dL Result Diagrams: 01/26/21 07:30 01/26/21 05:11 Sepsis Event Note - Evaluation Sepsis Screening Result: No Definite Risk - Focused Exam Vital Signs: Vital Signs Temp Pulse Resp BP Pulse Ox 01/26/21 04:00 97.8 F 85 16 171/64 H 94 L 01/26/21 00:00 97.8 F 86 16 144/60 H 96 - Problem List & Annotations (1) Altered mental status SNOMED Code(s): 356260047 Code(s): R41.82 - ALTERED MENTAL STATUS, UNSPECIFIED Status: Acute Priority: High Current Visit: Yes Qualifiers: Altered mental status type: unspecified Qualified Code(s): R41.82 - Altered mental status, unspecified (2) UTI (urinary tract infection) SNOMED Code(s): 19922859 Code(s): N39.0 - URINARY TRACT INFECTION, SITE NOT SPECIFIED Status: Acute Priority: High Current Visit: Yes Qualifiers: Urinary tract infection type: acute cystitis Hematuria presence: with hematuria Qualified Code(s): N30.01 - Acute cystitis with hematuria - Problem List Review Problem List Initiated/Reviewed/Updated: Yes - Assessment Assessment:: UTI Hypoglycemia Altered Mental Status Weakness - Plan Plan:: Lab noted normal WBC. CRP 3.3. Electrolytes are normal. Systolic blood pr essure is high at times. Blood sugars remain mildly elevated but due to not eating, insulin has not been given. Will continue to encourage oral intake. Is more alert now so hopefully oral intake will improve as has not had meds or insulin. Urine culture shows group B strep. Continue with IV Rocephin. Repeat labs in am. Possible discharge back to [facility] tomorrow.
[2021-01-26] MEDS: Enoxaparin 30 MG/0.3 ML Syringe SUBCUT SCH (09:22)
[2021-01-26] MEDS: Insulin NPH HUM/REG Insulin HM 100 UNIT/ML 3 ML Vial SQ SCH ×2 (09:22→16:24)
[2021-01-26] MEDS: amLODIPine 10 MG Tab PO SCH (09:22)
[2021-01-26] MEDS: Loratadine 10 MG Tab PO SCH (09:23)
[2021-01-26] MEDS: Aspirin 81 MG Tab.EC PO SCH (09:23)
[2021-01-26] MEDS: Ferrous Sulfate 324 MG Tab.EC PO SCH (09:23)
[2021-01-26] MEDS: Acetaminophen 500 MG Tab PO SCH ×2 (09:24→21:35)
[2021-01-26] MEDS: Lisinopril 20 MG Tab PO SCH (09:24)
[2021-01-26] MEDS: traMADol 50 MG Tab PO SCH ×3 (09:24→21:35)
[2021-01-26] MEDS ORDERED: Glucagon,Human Recombinant 1 MG Vial IM PRN (14:21)
[2021-01-26] MEDS ORDERED: 50% Dextrose in Water 50 ML Syringe IVPUSH PRN (14:21)
[2021-01-26] MEDS ORDERED: Insulin NPH HUM/REG Insulin HM 100 UNIT/ML 3 ML Vial SQ ONE ×2 (14:22→14:45)
[2021-01-26] MEDS: cefTRIAXone 1 GM Vial IVPUSH SCH (20:47)
[2021-01-26] MEDS: Donepezil 5 MG Tab PO SCH (21:35)
[2021-01-26] MEDS: Simvastatin 40 MG Tab PO SCH (21:35)
[2021-01-26] MEDS: Melatonin 3 MG Tab PO SCH (21:35)
[2021-01-27] MEDS ORDERED: 50% Dextrose in Water 50 ML Syringe IVPUSH PRN (10:08)
[2021-01-27] MEDS ORDERED: Glucagon,Human Recombinant 1 MG Vial IM PRN (10:08)
[2021-01-27] MEDS: Enoxaparin 30 MG/0.3 ML Syringe SUBCUT SCH (10:26)
[2021-01-27] MEDS: Loratadine 10 MG Tab PO SCH (10:34)
[2021-01-27] MEDS: Aspirin 81 MG Tab.EC PO SCH (10:51)
[2021-01-27] MEDS: Acetaminophen 500 MG Tab PO SCH ×2 (10:52→19:38)
[2021-01-27] MEDS: traMADol 50 MG Tab PO SCH ×3 (10:52→19:35)
[2021-01-27] MEDS: Insulin NPH HUM/REG Insulin HM 100 UNIT/ML 3 ML Vial SQ SCH (10:52)
[2021-01-27] MEDS: Lisinopril 20 MG Tab PO SCH (10:53)
[2021-01-27] MEDS: amLODIPine 10 MG Tab PO SCH (10:53)
[2021-01-27] MEDS: Ferrous Sulfate 324 MG Tab.EC PO SCH (10:53)
--- NOTE | 2021-01-27 11:13 | PN ---
DATE: 01/27/2021 S: Marleny is seen for followup. She has a closed head injury and UTI. For the most part, she is reasonably stable. Daughter is present in the room today and she just does not seem to be "perking up" like she would. She is answering questions yes or no and does appear to understand the questions. She has had poor intake and we have not been giving her any sliding scale insulin. We have been holding her 70/30. O: HEENT: Shows somewhat lightening of the bruises to the right side of her face extending from the bahai area going down to the angle of her mandible now. NECK: Neck veins are flat. LUNGS: Lung sounds appear clear in the anterior apices. CARDIAC: Tones are regular. ABDOMEN: Soft and nontender. EXTREMITIES: She has no peripheral edema. NEUROLOGIC: No repeat formal neuro exam was done. ASSESSMENT: 1. FALL WITH CLOSED HEAD INJURY. 2. ALTERED MENTAL STATUS. 3. URINARY TRACT INFECTION. 4. TYPE 2 DIABETES, REQUIRING INSULIN, WITH RECENT HYPOGLYCEMIA. 5. ALZHEIMER'S DEMENTIA. P: We will put her on a sliding scale. Hold her 70/30 for now. I am going to repeat a CT scan of her head as she is just making a sluggish return from her head injury. No other changes at this time. Hopefully back to [facility] by tomorrow. KIANNA/ZAIN /[id number]
[2021-01-27] MEDS: Insulin Lispro 100 Units/ML 3 ML Vial SUBCUT SCH ×3 (12:08→20:02)
[2021-01-27] MEDS ORDERED: Sodium Chloride 0.9% 500 ML IV SCH (19:15)
[2021-01-27] MEDS: cefTRIAXone 1 GM Vial IVPUSH SCH (19:34)
[2021-01-27] MEDS: Simvastatin 40 MG Tab PO SCH (19:35)
[2021-01-27] MEDS: Melatonin 3 MG Tab PO SCH (19:35)
[2021-01-27] MEDS: Donepezil 5 MG Tab PO SCH (19:35)
[2021-01-28] MEDS: Insulin Lispro 100 Units/ML 3 ML Vial SUBCUT SCH (07:59)
[2021-01-28] MEDS: Enoxaparin 30 MG/0.3 ML Syringe SUBCUT SCH (08:05)
[2021-01-28] MEDS: traMADol 50 MG Tab PO SCH ×2 (08:06→08:39)
[2021-01-28] MEDS: Acetaminophen 500 MG Tab PO SCH ×2 (08:07→08:39)
[2021-01-28] MEDS: Loratadine 10 MG Tab PO SCH (08:38)
[2021-01-28] MEDS: amLODIPine 10 MG Tab PO SCH (08:38)
[2021-01-28] MEDS: Lisinopril 20 MG Tab PO SCH (08:38)
[2021-01-28] MEDS: Aspirin 81 MG Tab.EC PO SCH (08:38)
[2021-01-28] MEDS: Ferrous Sulfate 324 MG Tab.EC PO SCH (08:38)
[2021-01-28 08:39] VITALS: BP 151/65
[2021-01-28 09:45] VITALS: PULSE 76
--- NOTE | 2021-01-28 09:53 | PCM.DCSUM1 ---
Discharge Summary - Hospital Course Free Text/Narrative:: Mrs. Holm is an 89 year old female that was admitted Sunday with urinary tract infection, hypoglycemia, altered mental status, and fall. She had a fall at [facility] last week. Patient has shown some improvement in the hospital. Responds appropriately to yes and no questions. Appetite remains inconsistent and not eating at times. Was changed to sliding scale insulin yesterday and glucose in the 200's this morning. Decreased urine output yesterday and was given a bolus of fluids. Urine output improved per report. Patient and family wanting patient to return to [facility] today. - Discharge Data Discharge Date: 01/28/21 Discharge Disposition: Home, Self-Care 01 Condition: Good - Referral to Home Health Primary Care Physician: Daren Mo MD - Discharge Diagnosis/Problem(s) (1) UTI, Urinary tract infectious disease SNOMED Code(s): 92508628 ICD Code: N39.0 - URINARY TRACT INFECTION, SITE NOT SPECIFIED Status: Acute Priority: High Current Visit: No (2) Hypoglycemia associated with diabetes SNOMED Code(s): 546161365, 028290207 ICD Code: E11.649 - TYPE 2 DIABETES MELLITUS WITH HYPOGLYCEMIA WITHOUT COMA Status: Acute Priority: High Current Visit: No (3) Altered mental status SNOMED Code(s): 529623572 ICD Code: R41.82 - ALTERED MENTAL STATUS, UNSPECIFIED Status: Acute Priority: High Current Visit: Yes Qualifiers: Altered mental status type: unspecified Qualified Code(s): R41.82 - Altered mental status, unspecified - Patient Summary/Data Consults: Consultations 01/25/21 00:25 PT Evaluation and Treatment [CONS] Routine - Discharge Plan *PRESCRIPTION DRUG MONITORING PROGRAM REVIEWED*: Not Applicable *COPY OF PRESCRIPTION DRUG MONITORING REPORT IN PATIENT SIM: Not Applicable Home Medications: Home Meds Acetaminophen [Tylenol Extra Strength] 500 mg PO Q4HR PRN 06/18/14 [History] Fosinopril Sodium 40 mg PO DAILY 06/18/14 [History] Insuln Asp Prot/Insulin Aspart [NovoLOG Mix 70-30] 18 units SUBCUT DAILY 06/18/14 [History] Insuln Asp Prot/Insulin Aspart [NovoLOG Mix 70-30] 36 units SUBCUT QAM 06/18/14 [History] Rosuvastatin Calcium [Crestor] 10 mg PO DAILY 06/18/14 [History] amLODIPine Besylate [Amlodipine Besylate] 10 mg PO DAILY 06/18/14 [History] atenoloL [Tenormin] 25 mg PO DAILY 06/18/14 [History] Donepezil [Aricept] 10 mg PO BEDTIME 02/22/16 [History] Aspirin 81 mg PO DAILY 08/16/16 [History] Acetaminophen 500 mg PO BID 05/13/18 [History] Ferrous Sulfate 325 mg PO DAILY 05/13/18 [History] Krill/Om-3/DHA/EPA/Phospho/Ast [Krill Oil 500 mg Softgel] 1 cap PO DAILY 05/13/18 [History] Loratadine 10 mg PO DAILY 05/13/18 [History] Melatonin 5 mg PO BEDTIME 05/13/18 [History] Docusate Sodium [Colace] 200 mg PO DAILY 01/23/21 [History] traMADol [Ultram] 50 mg PO TID 01/23/21 [History] Forms: ED Department Discharge Referrals: Daren Mo MD [Primary Care Provider] - - Discharge Summary/Plan Comment DC Time >30 min.: No Total # of Minutes for Discharge Time: 30 - General Info Date of Service: 01/28/21 Admission Dx/Problem (Free Text: UTI Altered Mental Status Weakness Subjective Update: Patient unable due to altered mental status and underlying dementia. Functional Status: Reports: Urinating, Other (diet inconsistent) - Review of Systems General: Reports: Appetite (decreased) - Patient Data Vitals - Most Recent: Last Vital Signs Temp 97.5 F 01/28/21 08:00 Pulse 76 01/28/21 08:00 Resp 16 01/28/21 08:00 BP 151/65 H 01/28/21 08:38 Pulse Ox 93 L 01/28/21 08:00 Weight - Most Recent: 132 lb 6.4 oz I&O - Last 24 hours: Intake & Output 01/27/21 01/28/21 01/28/21 22:59 06:59 14:59 Intake Total 240 100 Balance 240 100 Lab Results - Last 24 hrs: Laboratory Results - last 24 hr 01/27/21 01/27/21 01/27/21 Range/Units 12:03 17:27 19:44 POC Glucose 347 H 284 H 495 H* (75-105) mg/dL 01/27/21 01/28/21 Range/Units 22:05 07:56 POC Glucose 288 H 253 H (75-105) mg/dL Med Orders - Current: Current Medications Acetaminophen (Acetaminophen 325 Mg Tab) 650 mg PO Q4H PRN PRN Reason: Pain (Mild 1-3)/fever Acetaminophen (Acetaminophen 500 Mg Tab) 500 mg PO BID [facility] Last Admin: 01/28/21 08:39 Dose: Not Given Documented by: Amlodipine Besylate (Amlodipine 10 Mg Tab) 10 mg PO DAILY [facility] Last Admin: 01/28/21 08:38 Dose: Not Given Documented by: Aspirin (Aspirin 81 Mg Tab.Ec) 81 mg PO DAILY [facility] Last Admin: 01/28/21 08:38 Dose: Not Given Documented by: Ceftriaxone Sodium (Ceftriaxone 1 Gm Vial) 1 gm IVPUSH Q24H [facility] Last Admin: 01/27/21 19:34 Dose: 1 gm Documented by: Dextrose/Water (50% Dextrose In Water 50 Ml Syringe) 50 ml IVPUSH ASDIRECTED PRN PRN Reason: Hypoglycemia Docusate Sodium (Docusate Sodium 100 Mg Cap) 200 mg PO DAILY PRN PRN Reason: Constipation Donepezil HCl (Donepezil 5 Mg Tab) 10 mg PO BEDTIME [facility] Last Admin: 01/27/21 19:35 Dose: 10 mg Documented by: Enoxaparin Sodium (Enoxaparin 30 Mg/0.3 Ml Syringe) 30 mg SUBCUT Q24H [facility] Last Admin: 01/28/21 08:05 Dose: 30 mg Documented by: Ferrous Sulfate (Ferrous Sulfate 324 Mg Tab.Ec) 324 mg PO DAILY [facility] Last Admin: 01/28/21 08:38 Dose: Not Given Documented by: Glucagon (Glucagon,Human Recombinant 1 Mg Vial) 1 mg IM ASDIRECTED PRN PRN Reason: Hypoglycemia Insulin Human Lispro (Insulin Lispro 100 Units/Ml 3 Ml Vial) 0 unit SUBCUT WITHMEALSANDBED [facility]; Protocol Last Admin: 01/28/21 07:59 Dose: 6 unit Documented by: Insulin NPH Beef/Pork (Insulin Nph Hum/Reg Insulin Hm 100 Unit/Ml 3 Ml Vial) 36 unit SQ QAM [facility] Last Admin: 01/27/21 10:52 Dose: Not Given Documented by: Insulin NPH Beef/Pork (Insulin Nph Hum/Reg Insulin Hm 100 Unit/Ml 3 Ml Vial) 18 unit SQ DAILY@1600 [facility] Last Admin: 01/26/21 16:24 Dose: Not Given Documented by: Lisinopril (Lisinopril 20 Mg Tab) 20 mg PO DAILY [facility] Last Admin: 01/28/21 08:38 Dose: Not Given Documented by: Loratadine (Loratadine 10 Mg Tab) 10 mg PO DAILY [facility] Last Admin: 01/28/21 08:38 Dose: Not Given Documented by: Melatonin (Melatonin 3 Mg Tab) 6 mg PO BEDTIME [facility] Last Admin: 01/27/21 19:35 Dose: 6 mg Documented by: Simvastatin (Simvastatin 40 Mg Tab) 40 mg PO BEDTIME [facility] Last Admin: 01/27/21 19:35 Dose: 40 mg Documented by: Sodium Chloride (Sodium Chloride 0.9% 10 Ml Syringe) 10 ml FLUSH ASDIRECTED PRN PRN Reason: Keep Vein Open Tramadol HCl (Tramadol 50 Mg Tab) 50 mg PO TID [facility] Last Admin: 01/28/21 08:39 Dose: Not Given Documented by: Discontinued Medications Ceftriaxone Sodium (Ceftriaxone 1 Gm Vial) 1 gm IVPUSH ONETIME ONE Stop: 01/24/21 22:59 Last Admin: 01/24/21 23:04 Dose: 1 gm Documented by: Docusate Sodium (Docusate Sodium 100 Mg Cap) 200 mg PO DAILY [facility] Last Admin: 01/25/21 08:04 Dose: Not Given Documented by: Sodium Chloride (Normal Saline) 500 mls @ 100 mls/hr IV ASDIRECTED [facility] Stop: 01/28/21 00:14 Insulin NPH Beef/Pork (Insulin Nph Hum/Reg Insulin Hm 100 Unit/Ml 3 Ml Vial) 18 unit SQ DAILY [facility] Last Admin: 01/25/21 08:05 Dose: Not Given Documented by: Insulin NPH Beef/Pork (Insulin Nph Hum/Reg Insulin Hm 100 Unit/Ml 3 Ml Vial) 9 unit SQ ONETIME ONE Stop: 01/26/21 14:23 Insulin NPH Beef/Pork (Insulin Nph Hum/Reg Insulin Hm 100 Unit/Ml 3 Ml Vial) 9 unit SQ ONETIME ONE Stop: 01/26/21 14:46 Last Admin: 01/26/21 14:25 Dose: 9 unit Documented by: Simvastatin (Simvastatin 40 Mg Tab) 40 mg PO DAILY [facility] Last Admin: 01/25/21 08:05 Dose: Not Given Documented by: - Exam General: Reports: Alert, No Acute Distress. Denies: Oriented Neck: Reports: Supple. Denies: Lymphadenopathy Lungs: Reports: Clear to Auscultation, Normal Respiratory Effort. Denies: Crackles, Rales, Rhonchi Cardiovascular: Reports: Regular Rate. Denies: Gallops, Rubs GI/Abdominal Exam: Normal Bowel Sounds, Soft, No Distention (Female) Exam: Deferred Rectal (Female) Exam: Deferred Back Exam: Reports: Normal Inspection. Denies: CVA Tenderness (L), CVA Tenderness (R) Extremities: No Pedal Edema Skin: Reports: Warm, Dry, Intact, Ecchymosis (right side face) Neurological: Reports: No New Focal Deficit Psy/Mental Status: Reports: Alert, Other (dementia/confusion). Denies: Agitated
== END 2021-01-28 11:15 | disposition home or self-care (01) | DRG 690 ==
LOC: CC.ED 22:15 → CC.MS 23:06 → UNDOADMIN 23:07
PROVIDERS: ADMIT Nurse Practitioner Family; ATTEND Family Medicine
DX: N30.01 Acute cystitis with hematuria (principal); E11.649 Type 2 diabetes mellitus with hypoglycemia without coma; R41.82 Altered mental status, unspecified; E78.00 Pure hypercholesterolemia, unspecified; K21.9 Gastro-esophageal reflux disease without esophagitis; E11.42 Type 2 diabetes mellitus with diabetic polyneuropathy; I10 Essential (primary) hypertension; H54.7 Unspecified visual loss; G30.9 Alzheimer's disease, unspecified; F02.80 Dementia in other diseases classified elsewhere, unspecified severity, without behavioral disturbance, psychotic disturbance, mood disturbance, and anxiety; S09.90XA Unspecified injury of head, initial encounter; Z97.4 Presence of external hearing-aid; Z79.82 Long term (current) use of aspirin; Z98.49 Cataract extraction status, unspecified eye; W19.XXXA Unspecified fall, initial encounter
CPT/HCPCS: 36415; 70450; 80048; 80053; 82947; 85025; 86140; 96374; 97161-GP; 99285-25; A9270-GY; J0696; J1650; J1815-GY